=== PATIENT | female | born 1940 | race Caucasian/White ===

== ENCOUNTER → 2018-04-20 06:43 | Outpatient (CLI) | payer MEDICARE, SELFPAY ==
[2018-04-20 08:55] LABS: Alanine Aminotransferase 27 IU/L (9-52); Albumin 4.5 g/dL (3.5-5.0); Albumin Globulin Ratio 1.6 (1.0-2.8); Alkaline Phosphatase 49 U/L (38-126); Aspartate Aminotransferase 34 IU/L (14-36); BUN Creatinine Ratio 26.3 (6-22); Bilirubin Total 0.8 mg/dL (0.2-1.3); Blood Urea Nitrogen 21 mg/dL (7-17); Calcium 9.5 mg/dL (8.4-10.2); Carbon Dioxide 30 mmol/L (22-32); Chloride 100 mmol/L (98-107); Cholesterol 165 mg/dL (140-199); Estimated Glomerular Filt Rate > 60.0 mL/min (>60); Globulin 2.9 g/dL (1.7-4.1); Glucose 101 mg/dL (80-110); HDL Cholesterol 70 mg/dL (40-60); HEMOLYSIS < 15 (0-50); LDL Cholesterol Calculated 74 mg/dL (<100); Potassium 3.9 mmol/L (3.4-5.1); Sodium 143 mmol/L (137-145); Total Protein 7.4 g/dL (6.3-8.2); Triglycerides 104 mg/dL (35-150)
[2018-04-20 09:03] LABS: Vitamin D 25 Hydroxy (D3) 37.3 ng/mL (30.0-100.0)
== END ==
PROVIDERS: PCP Internal Medicine; Visit Provider Internal Medicine
DX: E55.9 Vitamin D deficiency, unspecified (principal); E78.2 Mixed hyperlipidemia
CPT/HCPCS: 36415; 80053; 80061; 82306

== ENCOUNTER → 2018-08-04 14:21 | Outpatient (CLI) | payer MEDICARE, SELFPAY ==
--- NOTE | 2018-08-04 14:23 | DI.US.S_ITS ---
LIMITED ULTRASOUND OF LEFT BREAST: 08/04/2018 CLINICAL: Per technologist, the patient reports diffuse left breast pain occuring approximately 1 month ago that was tender to the touch and radiated in a band-like fashion across the front of the breast from the sternum to the back. This pain completely resolved a few days later. Patient denies any current focal pain, skin changes, discharges, or palpable abnormalities. Comparison is made to exams dated: 08/04/2018 mammogram, 08/06/2017 mammogram, and 07/10/2015 mammogram - [facility]. Real-time and Doppler ultrasound of the upper left breast were performed. Anderson scale images of the real-time examination were reviewed. Targeted ultrasound was performed in the region of the 1.0 cm area of possible architectural distortion in the upper left breast at 12 o'clock position middle depth 2 cm from the nipple that was seen on initial diagnostic mammography but resolved with additional spot tomosynthesis views. No underlying breast mass or abnormality is identified on targeted left breast ultrasound. IMPRESSION: NEGATIVE 1) No ultrasound findings to explain patient's reported left breast pain, which has since resolved. Recommend clinical follow-up for further evaluation and management of the patient's reported symptoms. 2) There is no sonographic evidence of malignancy in the imaged left breast. Return to annual screening mammography is recommended. The patient is advised to monitor her breasts and to return sooner for re-evaluation should she feel anything grow or change. This exam was interpreted at Station ID: [id number]. Electronically Signed By: Jose Zepeda M.D. ecl/:08/04/2018 19:19:34 letter sent: Clinical Evaluation Ultrasound BI-RADS: 1 Negative
--- NOTE | 2018-08-04 14:23 | DI.MG.S_ITS ---
BILATERAL DIGITAL DIAGNOSTIC MAMMOGRAM 3D/2D: 08/04/2018 CLINICAL: Per technologist, the patient reports diffuse left breast pain occuring approximately 1 month ago that was tender to the touch and radiated in a band-like fashion across the front of the breast from the sternum to the back. This pain completely resolved a few days later. Patient denies any current focal pain, skin changes, discharges, or palpable abnormalities. Comparison is made to exams dated: 08/06/2017 mammogram, 07/10/2015 mammogram, and 06/20/2014 mammogram - [facility]. There are scattered fibroglandular elements in both breasts. There is a 1.0 cm area of possible architectural distortion in the upper left breast at 12 o'clock position middle depth 2 cm from the nipple which resolves with additional spot tomosynthesis views. No significant masses, calcifications, or other findings are seen in either breast. IMPRESSION: INCOMPLETE: NEEDS ADDITIONAL IMAGING EVALUATION 1) 1.0 cm area of possible architectural distortion in the upper left breast at 12 o'clock position middle depth 2 cm from the nipple which resolves with additional spot tomosynthesis views. Targeted ultrasound will be performed for further evaluation. 2) No other findings to explain patient's reported previous diffuse left breast pain, which has since resolved. This exam was interpreted at Station ID: [id number]. NOTE: For mammograms, a report in lay terms will be sent to the patient. Approximately 15% of breast malignancies will not be visualized mammographically. In the management of a palpable breast mass, a negative mammogram must not discourage biopsy of a clinically suspicious lesion. Electronically Signed By: Jose Zepeda M.D. ecl/:08/04/2018 19:15:32 letter sent: Additional Imaging Needed ACR BI-RADS Category 0: Incomplete [id number]
== END ==
PROVIDERS: PCP Internal Medicine; Visit Provider Internal Medicine
DX: R92.8 Other abnormal and inconclusive findings on diagnostic imaging of breast (principal); N64.4 Mastodynia
CPT/HCPCS: 76642; 77066; G0279

== ENCOUNTER → 2018-11-09 10:06 | Outpatient (CLI) | payer MEDICARE, SELFPAY ==
[2018-11-09 11:11] LABS: Alanine Aminotransferase 28 IU/L (9-52); Albumin 4.7 g/dL (3.5-5.0); Albumin Globulin Ratio 1.5 (1.0-2.8); Alkaline Phosphatase 54 U/L (38-126); Aspartate Aminotransferase 37 IU/L (14-36); BUN Creatinine Ratio 22.2 (6-22); Bilirubin Total 0.5 mg/dL (0.2-1.3); Blood Urea Nitrogen 20 mg/dL (7-17); Carbon Dioxide 30 mmol/L (22-32); Chloride 98 mmol/L (98-107); Estimated Glomerular Filt Rate > 60.0 mL/min (>60); Globulin 3.1 g/dL (1.7-4.1); Glucose 100 mg/dL (80-110); HEMOLYSIS < 15 (0-50); Potassium 4.4 mmol/L (3.4-5.1); Sodium 137 mmol/L (137-145); Total Protein 7.8 g/dL (6.3-8.2)
== END ==
PROVIDERS: PCP Internal Medicine; Visit Provider Internal Medicine
DX: E78.2 Mixed hyperlipidemia (principal)
CPT/HCPCS: 36415; 80053

== ENCOUNTER → 2019-04-19 06:40 | Outpatient (CLI) | payer MEDICARE, SELFPAY ==
[2019-04-19 08:03] LABS: Alanine Aminotransferase 22 IU/L (9-52); Albumin 4.4 g/dL (3.5-5.0); Albumin Globulin Ratio 1.5 (1.0-2.8); Alkaline Phosphatase 57 U/L (38-126); Aspartate Aminotransferase 31 IU/L (14-36); BUN Creatinine Ratio 22.5 (6-22); Bilirubin Total 0.7 mg/dL (0.2-1.3); Blood Urea Nitrogen 18 mg/dL (7-17); Calcium 9.4 mg/dL (8.4-10.2); Carbon Dioxide 31 mmol/L (22-32); Chloride 101 mmol/L (98-107); Cholesterol 156 mg/dL (140-199); Estimated Glomerular Filt Rate > 60.0 mL/min (>60); Globulin 2.9 g/dL (1.7-4.1); Glucose 101 mg/dL (80-110); HDL Cholesterol 66 mg/dL (40-60); HEMOLYSIS < 15 (0-50); LDL Cholesterol Calculated 69 mg/dL (<100); Potassium 4.1 mmol/L (3.4-5.1); Sodium 140 mmol/L (137-145); Total Protein 7.3 g/dL (6.3-8.2); Triglycerides 103 mg/dL (35-150)
== END ==
PROVIDERS: PCP Internal Medicine; Visit Provider Internal Medicine
DX: E78.2 Mixed hyperlipidemia (principal)
CPT/HCPCS: 36415; 80053; 80061

== ENCOUNTER 2019-05-26 06:25 | Day surgery (SDC) | payer MEDICARE, SELFPAY ==
--- NOTE | 2019-05-26 | PATH_ITS ---
[facility] Accession Number: [id number] . 01 Material submitted: . sinus, frontal - RIGHT PIRIFORM SINUS BIOPSY . 01 Clinical history: . FROZEN SECTION DIAGNOSIS: PIRIFORM SINUS: INVASIVE SQUAMOUS CELL CARCINOMA. GROSS DESCRIPTION: 5 PCS BLACKMON-RED TISSUE 0.2-0.6 CM. . 02 Frozen section diagnosis: . FS: INVASIVE SQUAMOUS CELL CARCINOMA. . Results given to Dr. Sonia Hodge after patient identification by Dr. Vonda Mancuso on 05/26/2019. Procedure was performed at [address] JRL/MRV . 03 Diagnosis: Right Pyriform Sinus, Biopsy: Invasive squamous cell carcinoma, well to moderately differentiated. Negative for p16 immunostaining. MRV/05/31/2019 . 03 Comment: Results were discussed with Sadia, [employer] with Dr. Hodge on 05/31/2019 at approximately 3:35 p.m. . This case was reviewed by Dr. Mancuso, who concurs with this interpretation. . 03 Electronically signed: . Oxana Fontaine MD, Pathologist NPI- [id number] . 01 Gross description: . Received in formalin, labeled pyriform sinus biopsy, are five pieces of blackmon-red tissue (0.2-0.6 cm) which were previously received unfixed for frozen section performed at [facility]. The remaining frozen section tissue is entirely submitted in cassette A1, and the remaining tissue is filtered and entirely submitted in cassette A2. ([id number]) /MRV . 03 Microscopic: . An immunohistochemical stain for p16 is performed on block A2 to evaluate for block reactivity and is negative. The control stained with appropriate reactivity. . * This test was developed and its performance characteristics determined by [employer]. It has not been cleared or approved by the U.S. Food and Drug Administration. The FDA has determined that such clearance or approval is not necessary. This test is used for clinical purposes. It should not be regarded as investigational or for research. . 03 Pathologist provided ICD-10: C12 . 03 CPT . 575116, 995609, A02399 Performed at: 01 [facility] [address] [id number] MD Rafael Patel MD Phone: [phone] Performed at: [address] [facility] [id number] MD Irlanda Portillo MD Phone: [phone] Performed at: [address] [id number] MD Maria L Mancuso MD Phone: [phone]
[2019-05-26 06:59] VITALS: BP 108/66; PULSE 74; RESP 16; TEMP 36.4; O2SAT 98; BMI 43.1
--- NOTE | 2019-05-26 07:19 | PM.PREOP ---
Pre-operative Note Interval Note History & Physical reviewed/Exam performed by Physician: Yes Changes to H&P: No
[2019-05-26 08:18] VITALS: BP 110/66; PULSE 66; RESP 12; TEMP 36.1; O2SAT 95
[2019-05-26 08:23] VITALS: BP 109/67; PULSE 65; RESP 11; O2SAT 94
[2019-05-26] MEDS: OXYMETAZOLINE NASAL SPRAY 30 ML 2 SPRAYS NASAL (08:27)
[2019-05-26 08:28] VITALS: BP 118/68; PULSE 66; RESP 11; O2SAT 93
[2019-05-26 08:33] VITALS: BP 112/58; PULSE 65; RESP 14; O2SAT 95
--- NOTE | 2019-05-26 08:37 | PM.OP.1 ---
Operative Date/Time/Diagnoses Date of procedure: 05/26/19 Time of procedure: 08:38 Pre-op diagnosis: Right piriform sinus mass Post-op diagnosis: same Procedure & Clinicians Procedure: Direct laryngoscopy with biopsy Same procedure as scheduled: Yes Indications: 78-year-old female with the above diagnosis presents for the above procedure. following discussion of the material risks benefits complications and alternatives, she elected to proceed. Click Yes if Unassisted: Yes Anesthesia Type: General Operative Notes Findings: Exophytic greater than 1 cm mass filling right piriform sinus, frozen section consistent with invasive squamous cell carcinoma Closure Type: not applicable Specimen(s): other (Biopsy right piriform sinus mass) Estimated Blood Loss (mL): 5 Blood products transfused: none Procedure in detail: Following identification and confirmation of consent, she was brought to the operating room suite and general endotracheal anesthesia was administered. The table was turned right side out and a mouth guard was placed. the rigid laryngoscope was passed through the right side of the oral cavity until the right piriform mass was visualized. A cup forceps performed 3 biopsies with pressure and Afrin on pledgets for hemostasis. hemostasis was assured and the scope was removed. There was an area of the lower lip that had been pinched consistent with a bruise but no laceration. She tolerated the procedure well without known complication. She was extubated in the operating room and taken to recovery room in stable condition. Complications: none Condition: stable Disposition: PACU Plan for aftercare: [place] home
[2019-05-26 08:40] VITALS: BP 127/66; PULSE 98; RESP 17; TEMP 36.7; O2SAT 97
--- NOTE | 2019-05-26 09:06 | SUR.PHASEII ---
Phase 2: Discharge note--Discharged to home with friend. No complaints of pain. Tolerating cool po without nausea. Dr. Hodge will call patient this afternoon per orders on discharge instructions.
== END 2019-05-26 09:05 | disposition home or self-care (01) ==
PROVIDERS: PCP Internal Medicine; Visit Provider Otolaryngology
PROC: 0CJS8ZZ Inspection of Larynx, Via Natural or Artificial Opening Endoscopic (ICD-10-PCS; CPT 31535; principal; 2019-05-26 07:45)
DX: C12 Malignant neoplasm of pyriform sinus (principal); Z85.819 Personal history of malignant neoplasm of unspecified site of lip, oral cavity, and pharynx
CPT/HCPCS: 31535; 88305; 88311; 88342; J0330; J1100; J2405; J2704; J3010

== ENCOUNTER → 2019-05-31 08:25 | Outpatient (CLI) | payer MEDICARE, SELFPAY ==
[2019-05-31 08:54] LABS: BUN Creatinine Ratio 26.3 (6-22); Blood Urea Nitrogen 21 mg/dL (7-17); Estimated Glomerular Filt Rate > 60.0 mL/min (>60)
== END ==
PROVIDERS: PCP Internal Medicine; Visit Provider Otolaryngology
DX: C13.9 Malignant neoplasm of hypopharynx, unspecified (principal)
CPT/HCPCS: 36415; 82565; 84520

== ENCOUNTER → 2019-06-01 12:54 | Outpatient (CLI) | payer MEDICARE, SELFPAY ==
--- NOTE | 2019-06-01 13:24 | DI.CT.S_ITS ---
PROCEDURE: CT SOFT TISSUE NECK W CON INDICATIONS: Malignant neoplasm of hypopharynx, unspecified TECHNIQUE: After the administration of intravenous contrast, 3.0 mm axial sections acquired from the sella to the aortic arch. Additional oblique axial 3.0 mm sections acquired through the pharynx. 3 mm thick coronal and sagittal reformats were generated. For radiation dose reduction, the following was used: automated exposure control. COMPARISON: [facility], CT, SOFT TISSUE NECK W CONTRAST, 03/09/2009, 7:24. [facility], CT, THORAX WITH CONTRAST, 03/09/2009, 7:24. [facility], CT, SOFT TISSUE NECK W CONTRAST, 06/30/2008, 11:54. FINDINGS: Image quality: Excellent. Lymph nodes: Mild prominence of cerebral lymph nodes can be seen, yet without digna pathologic enlargement. Vessels: Visualized vasculature appears patent. Neck spaces: There is abnormal enhancing soft tissue seen within the right supraglottic neck, seen within the region of the right piriform sinus that measures 1.6 x 1.5 cm in greatest axial dimension, with a craniocaudal extent of 1.8 cm. No additional neck masses are detected. Postoperative changes are can be seen of the right neck. Glands: The parotid and submandibular glands appear normal. Thyroid gland demonstrates a low density lesion within the right thyroid that measures 9 mm and is similar to 2009. Miscellaneous: Visualized brain and orbits appear normal. Poorly defined opacity can be seen within the right upper lobe, which is new compared to prior imaging, although the most recent CT examination through the area was in 2008. Superficial soft tissues appear normal. Bones: No suspicious bony lesions. Visualized sinuses and mastoids appear unremarkable. Moderate degenerative change is seen of the inferior cervical spine. IMPRESSION: There is an enhancing mass seen on the right within the region of the piriform sinus that measures up to 1.8 cm. The imaging appearance is highly worrisome for recurrent neoplasm. Further evaluation is recommended, either beginning with a PET CT or direct visualization/biopsy. Abnormal right upper lobe opacity is seen. The appearance is moderately suspicious for neoplasm. If prior outside studies exist, please present them for correlation. Comparison will be made and an addendum issued to this report. In the absence of outside prior studies, dedicated chest CT would be recommended for further evaluation, as clinically appropriate. Dictated by: Donald Foster M.D. on 06/01/2019 at 15:47 Approved by: Donald Foster M.D. on 06/01/2019 at 16:04
== END ==
PROVIDERS: PCP Internal Medicine; Visit Provider Otolaryngology
DX: C13.9 Malignant neoplasm of hypopharynx, unspecified (principal)
CPT/HCPCS: 70491; Q9967

== ENCOUNTER → 2019-06-01 13:18 | Outpatient (CLI) | payer SELFPAY | PROVIDERS: PCP Internal Medicine; Visit Provider Otolaryngology | DX: C12 Malignant neoplasm of pyriform sinus (principal) ==

== ENCOUNTER → 2019-09-27 08:15 | Outpatient (CLI) | payer MEDICARE, SELFPAY ==
[2019-09-27 09:14] LABS: BUN Creatinine Ratio 28.8 (6-22); Blood Urea Nitrogen 23 mg/dL (7-17); Estimated Glomerular Filt Rate > 60.0 mL/min (>60)
== END ==
PROVIDERS: Visit Provider Otolaryngology
DX: C12 Malignant neoplasm of pyriform sinus (principal)
CPT/HCPCS: 36415; 82565; 84520

== ENCOUNTER → 2019-10-07 09:30 | Outpatient (CLI) | payer MEDICARE, SELFPAY ==
--- NOTE | 2019-10-07 09:54 | DI.CT.S_ITS ---
PROCEDURE: CT SOFT TISSUE NECK W CON INDICATIONS: Malignant neoplasm of pyriform sinus TECHNIQUE: After the administration of intravenous contrast, 3.0 mm axial sections acquired from the sella to the aortic arch. Additional oblique axial 3.0 mm sections acquired through the pharynx. 3 mm thick coronal and sagittal reformats were generated. For radiation dose reduction, the following was used: automated exposure control. COMPARISON: [facility], [place], [place] PET CT FUSION SKULL 2 THIGH, 06/08/2019, 15:18. [facility], CT, CT SOFT TISSUE NECK W CON, 06/01/2019, 13:07. FINDINGS: Image quality: Excellent. Lymph nodes: No enlarged lymph nodes seen throughout the neck. There is a 0.8 cm short axis left level III lymph node which is centrally necrotic concerning for metastatic disease. There is a 0.9 cm short axis left level IIb lymph node which is centrally necrotic concerning for metastatic disease. Vessels: Visualized vasculature appears patent. Neck spaces: Mucosal-based, heterogeneously enhancing mass involving the right tongue base with inferior extension into the right valleculum in the right piriform sinus is decreased in size compared to 06/01/2019 measuring 0.9 x 1.0 x 0.9 cm in the current study (1.6 x 1.5 x 1.8 cm previously. The nasopharynx, and pharynx demonstrate no mucosal lesions. The vocal cords, false vocal cords, pyriform sinuses, epiglottis, vallecula, and tongue base all appear normal. Extramucosal spaces appear unremarkable. The right sternocleidomastoid muscle is absent. Glands: The right submandibular gland is absent. The parotid and left submandibular glands appear normal. Thyroid gland contains hypoattenuating nodules which are stable compared to 06/01/2019.. Miscellaneous: Visualized brain and orbits appear normal. Parenchymal scarring in the anterior margin of the right upper lobe is stable compared to prior examination. Superficial soft tissues appear normal. Bones: No suspicious bony lesions. Spine degenerative disc disease and facet arthropathy. Visualized sinuses and mastoids appear unremarkable. IMPRESSION: 1. 0.9 x 1.0 x 0.9 cm mucosal-based mass involving the right tongue base with extension of the right vallecula and piriform sinus. Mass is decreased in size compared A.. 2. Centrally necrotic left level IIb and left level III lymph nodes concerning for metastatic disease. Dictated by: Stacy Jansen MD, PhD on 10/07/2019 at 13:15 Approved by: Stacy Jansen MD, PhD on 10/07/2019 at 13:30
== END ==
PROVIDERS: Visit Provider Radiology Radiation Oncology
DX: C12 Malignant neoplasm of pyriform sinus (principal); I88.8 Other nonspecific lymphadenitis
CPT/HCPCS: 70491; Q9967

== ENCOUNTER → 2019-10-27 10:02 | Outpatient (CLI) | payer MEDICARE, SELFPAY ==
[2019-10-27 10:27] LABS: Add Manual Diff / Slide Review NO; Basophils Absolute Auto 0 /uL (0-100); Basophils Percent Auto 0.6 % (0-2); Eosinophils Absolute Auto 100 /uL (0-450); Eosinophils Percent Auto 1.3 % (2-4); Hematocrit 40.6 % (36-46); Hemoglobin 13.7 g/dL (12.0-16.0); Lymphocytes Absolute Auto 1300 /uL (1100-4500); Lymphocytes Percent Auto 15.1 % (25-40); Mean Corpuscular HGB Conc 33.7 % (30-36); Mean Corpuscular Hemoglobin 30.2 PG (26-34); Mean Corpuscular Volume 89.6 fL (80-100); Monocytes Absolute Auto 600 /uL (0-900); Monocytes Percent Auto 6.6 % (3-14); Neutrophils Absolute Auto 6500 /uL (1500-7000); Neutrophils Percent Auto 76.4 % (50-75); Platelet Count 276 X10^3/uL (150-400); Red Blood Cell Count 4.53 X10^6/uL (4.0-5.2); Red Cell Distribution Width 14.4 % (11.6-14.8); White Blood Cell Count 8.5 X10^3/uL (4.5-11.0)
[2019-10-27 10:41] LABS: Alanine Aminotransferase 20 IU/L (<35); Albumin 4.6 g/dL (3.5-5.0); Albumin Globulin Ratio 1.4 (1.0-2.8); Alkaline Phosphatase 63 U/L (38-126); Aspartate Aminotransferase 36 IU/L (14-36); BUN Creatinine Ratio 31.3 (6-22); Bilirubin Total 0.5 mg/dL (0.2-1.3); Blood Urea Nitrogen 25 mg/dL (7-17); Calcium 9.9 mg/dL (8.4-10.2); Carbon Dioxide 31 mmol/L (22-32); Chloride 97 mmol/L (98-107); Estimated Glomerular Filt Rate > 60.0 mL/min (>60); Globulin 3.4 g/dL (1.7-4.1); Glucose 96 mg/dL (80-110); HEMOLYSIS < 15 (0-50); Potassium 4.3 mmol/L (3.4-5.1); Sodium 138 mmol/L (137-145)
== END ==
PROVIDERS: PCP Internal Medicine; Visit Provider Internal Medicine
DX: C09.9 Malignant neoplasm of tonsil, unspecified (principal); E78.2 Mixed hyperlipidemia; F41.1 Generalized anxiety disorder
CPT/HCPCS: 36415; 80053; 85025

== ENCOUNTER → 2019-12-13 06:39 | Outpatient (CLI) | payer MEDICARE, SELFPAY ==
[2019-12-13 07:38] LABS: Add Manual Diff / Slide Review NO; Basophils Absolute Auto 100 /uL (0-100); Basophils Percent Auto 1.1 % (0-2); Eosinophils Absolute Auto 200 /uL (0-450); Eosinophils Percent Auto 3.7 % (2-4); Hematocrit 39.5 % (36-46); Hemoglobin 13.5 g/dL (12.0-16.0); Lymphocytes Absolute Auto 1300 /uL (1100-4500); Lymphocytes Percent Auto 23.5 % (25-40); Mean Corpuscular HGB Conc 34.2 % (30-36); Mean Corpuscular Hemoglobin 30.3 PG (26-34); Mean Corpuscular Volume 88.7 fL (80-100); Monocytes Absolute Auto 500 /uL (0-900); Monocytes Percent Auto 8.3 % (3-14); Neutrophils Absolute Auto 3600 /uL (1500-7000); Neutrophils Percent Auto 63.4 % (50-75); Platelet Count 264 X10^3/uL (150-400); Red Blood Cell Count 4.45 X10^6/uL (4.0-5.2); Red Cell Distribution Width 13.9 % (11.6-14.8); White Blood Cell Count 5.7 X10^3/uL (4.5-11.0)
[2019-12-13 08:29] LABS: Alanine Aminotransferase 21 IU/L (<35); Albumin 4.2 g/dL (3.5-5.0); Albumin Globulin Ratio 1.3 (1.0-2.8); Alkaline Phosphatase 62 U/L (38-126); Aspartate Aminotransferase 33 IU/L (14-36); BUN Creatinine Ratio 27.5 (6-22); Bilirubin Total 0.5 mg/dL (0.2-1.3); Blood Urea Nitrogen 22 mg/dL (7-17); Calcium 9.9 mg/dL (8.4-10.2); Carbon Dioxide 31 mmol/L (22-32); Chloride 101 mmol/L (98-107); Estimated Glomerular Filt Rate > 60.0 mL/min (>60); Globulin 3.2 g/dL (1.7-4.1); Glucose 83 mg/dL (80-110); HEMOLYSIS < 15 (0-50); Potassium 5.1 mmol/L (3.4-5.1); Sodium 138 mmol/L (137-145); Total Protein 7.4 g/dL (6.3-8.2)
== END ==
PROVIDERS: PCP Internal Medicine; Referring Provider Internal Medicine; Visit Provider Internal Medicine
DX: C09.9 Malignant neoplasm of tonsil, unspecified (principal); E78.2 Mixed hyperlipidemia; F41.1 Generalized anxiety disorder
CPT/HCPCS: 36415; 80053; 85025

== ENCOUNTER → 2019-12-19 07:41 | Outpatient (CLI) | payer MEDICARE, SELFPAY ==
--- NOTE | 2019-12-19 08:09 | DI.CT.S_ITS ---
PROCEDURE: CT SOFT TISSUE NECK W CON INDICATIONS: Malignant neoplasm of pyriform sinus TECHNIQUE: After the administration of intravenous contrast, 3.0 mm axial sections acquired from the sella to the aortic arch. Additional oblique axial 3.0 mm sections acquired through the pharynx. 3 mm thick coronal and sagittal reformats were generated. For radiation dose reduction, the following was used: automated exposure control. COMPARISON: [facility], CT, CT SOFT TISSUE NECK W CON, 10/07/2019, 9:37. [facility], [place], [place] FUSION SKULL 2 THIGH, 06/08/2019, 15:18. [facility], CT, CT SOFT TISSUE NECK W CON, 06/01/2019, 13:07. FINDINGS: Image quality: Degraded by beam hardening artifact related to metallic dental hardware. Lymph nodes: No enlarged lymph nodes seen throughout the neck. Centrally necrotic left level IIb and left level III lymph nodes are stable in size and contour compared to 10/07/2019. There is a new 0.9 cm short axis node in the right paratracheal superior mediastinum which has decreased central attenuation. Vessels: Visualized vasculature appears patent. Neck spaces: Mucosal prominence and scattered heterogeneous mucosal enhancement noted in the base and the pharynx including the valleculae, the right pyriform sinus, the epiglottis and the false vocal cords. The nasopharynx demonstrate no mucosal lesions. The vocal cords appear normal. The right sternocleidomastoid muscle is absent. Glands: The right submandibular gland is absent. The bilateral parotid and left submandibular glands appear normal. Thyroid gland contains numerous hypoattenuating nodules which are not significantly changed compared to the prior examination.. Miscellaneous: Visualized brain and orbits appear normal. Probable scarring in the anterior aspect of the right upper lobe is stable. Nodule in the left upper lobe has increased in size measuring 2.2 cm in maximum diameter in the current study (0.8 centimeters previously). Superficial soft tissues appear normal. Bones: No suspicious bony lesions. Visualized sinuses and mastoids appear unremarkable. IMPRESSION: 1. Interval increase in mucosal prominence involving the tongue base, valleculae, right pyriform sinus, epiglottis and false vocal cords which could be related to postradiation change or progression of head and neck carcinoma. 2. Centrally necrotic left level IIb and left level III lymph nodes concerning for metastatic disease are stable compared to 11/07/2018. 3. New centrally necrotic 0.9 cm short axis superior mediastinal lymph node concerning for metastatic lymphadenopathy. 3. 2.2 cm left upper lobe lung nodule suspicious for metastatic disease. Dictated by: Stacy Jansen MD, PhD on 12/19/2019 at 16:42 Approved by: Stacy Jansen MD, PhD on 12/19/2019 at 16:58
== END ==
PROVIDERS: PCP Internal Medicine; Referring Provider Radiology Radiation Oncology; Visit Provider Radiology Radiation Oncology
DX: C12 Malignant neoplasm of pyriform sinus (principal); R91.1 Solitary pulmonary nodule; R59.0 Localized enlarged lymph nodes
CPT/HCPCS: 70491; Q9967

== ENCOUNTER → 2020-03-19 06:48 | Outpatient (CLI) | payer MEDICARE, SELFPAY ==
[2020-03-19 07:25] LABS: Blood Urea Nitrogen 16 mg/dL (7-17); Estimated Glomerular Filt Rate > 60.0 mL/min (>60)
--- NOTE | 2020-03-19 09:41 | DI.CT.S_ITS ---
PROCEDURE: CT SOFT TISSUE NECK W CON INDICATIONS: MALIGNANT NEOPLASM OF PYRIFORM SINUS TECHNIQUE: After the administration of intravenous contrast, 3.0 mm axial sections acquired from the sella to the aortic arch. Additional oblique axial 3.0 mm sections acquired through the pharynx. 3 mm thick coronal and sagittal reformats were generated. For radiation dose reduction, the following was used: automated exposure control. COMPARISON: [place], [place] PET CT FUSION SKULL 2 THIGH, 01/04/2020, 14:45. [facility], CT, SOFT TISSUE NECK W CONTRAST, 03/09/2009, 7:24. [facility], CT, CT SOFT TISSUE NECK W CON, 06/01/2019, 13:07. [place], [place] PET CT FUSION SKULL 2 THIGH, 06/08/2019, 15:18. [facility], CT, CT SOFT TISSUE NECK W CON, 10/07/2019, 9:37. [facility] CT, CT SOFT TISSUE NECK W CON, 12/19/2019, 6:48. FINDINGS: Image quality: Excellent. Lymph nodes: No enlarged lymph nodes seen throughout the neck. The previously seen right superior cervical lymph node is clearly smaller than on the prior CT now measuring approximately 6 x 5 mm. Vessels: Visualized vasculature appears patent. Neck spaces: In this patient with this given history, scrutiny is given to the piriform sinuses. No masses can be seen. There is mild asymmetry seen within the right peritonsillar regions, with slight thickening seen on the right. This is similar in retrospect to prior examinations. This area has demonstrated no abnormal uptake on PET imaging. Extramucosal spaces appear unremarkable. Glands: The parotid and submandibular glands appear normal. Thyroid gland demonstrates a low density nodule on the right measuring 1 cm. Miscellaneous: Visualized brain and orbits appear normal. There is an irregular soft tissue nodule seen within the left lung apex, which measures 1.3 x 0.9 cm, which is clearly smaller than on the 12/19/19 examination. There is partial visualization of a soft tissue nodule within the right upper lobe that measures 1.4 x 1.4 cm, which is worse than on the 01/04/[address] images. Stable apparent scarring can be seen involving the right upper lobe anteriorly. Superficial soft tissues appear normal. Bones: No suspicious bony lesions. Visualized sinuses and mastoids appear unremarkable. Focal lower cervical spine degenerative changes are seen. IMPRESSION: No abnormalities can be seen within the piriform sinuses. There is a new 1.4 cm soft tissue nodule seen within the right upper lobe, which cannot be seen on prior recent imaging. This nodule is suspicious for metastatic disease. There is stable mild asymmetry seen within the peritonsillar regions, with slight mucosal thickening seen on the right. This is not viewed with suspicion, however. The previously seen left upper lobe nodule is clearly smaller on the current study. The previously seen enlarged and hypermetabolic right superior cervical lymph node is now clearly smaller on the current study. Stable right thyroid nodule incidentally noted, without significant change compared to 2009. Dictated by: Donald Foster M.D. on 03/19/2020 at 8:35 Approved by: Donald Foster M.D. on 03/19/2020 at 8:47
== END ==
PROVIDERS: PCP Internal Medicine; Referring Provider Radiology Radiation Oncology; Visit Provider Radiology Radiation Oncology
DX: C12 Malignant neoplasm of pyriform sinus (principal); R91.8 Other nonspecific abnormal finding of lung field; E04.1 Nontoxic single thyroid nodule; R59.0 Localized enlarged lymph nodes
CPT/HCPCS: 36415; 70491; 82565; 84520; Q9967

== ENCOUNTER → 2020-04-02 09:37 | Outpatient (CLI) | payer MEDICARE, SELFPAY ==
--- NOTE | 2020-04-02 | DI.CT.S_ITS ---
PROCEDURE: CT CHEST W CON INDICATIONS: Malignant neoplasm of upper lobe, left bronchus or lung TECHNIQUE: After the administration of intravenous contrast, 5 mm thick sections acquired from the pulmonary apices to the posterior costophrenic angles. 1 mm axial lung, 5 mm thick coronal and sagittal reformats and 7 mm axial MIP were acquired. For radiation dose reduction, the following was used: automated exposure control, adjustment of mA and/or kV according to patient size. COMPARISON: [place], [place], [place] PET CT FUSION SKULL 2 THIGH, 01/04/2020, 14:45. FINDINGS: Image quality: Excellent. Lungs and pleura: Since the prior PET CT, there has been interval development of 2 separate nodules within the right upper lobe essentially amongst vasculature, and the upper one measuring about 10 mm, a more caudal one measuring about 1.7 cm. Fibrotic scarring anteriorly in the right upper lobe is again noted. Spiculated ovoid mass in the left upper lobe has decreased in size since the PET/CT. No other suspicious nodules or masses. Findings are superimposed on background of mild emphysema. There is partial airway occlusion secondary to the largest mass in the right upper lobe but no evidence of postobstructive pneumonia. Central airways are patent. No pleural effusion or pneumothorax. Mediastinum: Heart size is normal. No pericardial effusion. No mediastinal or hilar adenopathy by size criteria. There is slightly increased soft tissue in the right hilum suspicious for small lymph nodes. Thoracic aorta and central pulmonary arteries are normal in size. Esophagus is normal in caliber. No hiatal hernia. Bones and chest wall: No suspicious bony lesions. No vertebral body compression fractures. No axillary or supraclavicular adenopathy by size criteria. Thyroid gland has a thick nodular appearance. Abdomen: Visualized upper abdominal solid organs appear normal. Upper abdominal bowel loops are normal in caliber. IMPRESSION: 1. There are 2 suspicious right upper lobe lung nodules, the largest was probably 1.4 cm and is now 1.7 cm. A smaller one has developed it measures 10 mm. These are highly suspicious for metastatic disease. 2. Interval decrease in size of left upper lobe lung nodule. 3. Mild emphysema. 4. Stable anterior right upper lobe scar. 5. Possible early right hilar adenopathy. Dictated by: Yissel Delcid M.D. on 04/02/2020 at 14:38 Approved by: Yissel Delcid M.D. on 04/02/2020 at 14:47
== END ==
PROVIDERS: PCP Internal Medicine; Referring Provider Radiology Radiation Oncology; Visit Provider Radiology Radiation Oncology
DX: C34.12 Malignant neoplasm of upper lobe, left bronchus or lung (principal); R91.8 Other nonspecific abnormal finding of lung field; J43.9 Emphysema, unspecified
CPT/HCPCS: 71260

== ENCOUNTER → 2020-06-06 10:57 | Outpatient (CLI) | payer MEDICARE, SELFPAY | PROVIDERS: PCP Internal Medicine; Visit Provider Registered Nurse Diabetes Educator | DX: R31.9 Hematuria, unspecified (principal) | CPT/HCPCS: 87086 ==

== ENCOUNTER → 2020-07-12 07:33 | Outpatient (CLI) | payer MEDICARE, SELFPAY ==
--- NOTE | 2020-07-12 08:16 | DI.CT.S_ITS ---
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 1 mm axial lung, 5 mm thick coronal and sagittal reformats and 7 mm axial MIP were acquired. For radiation dose reduction, the following was used: automated exposure control, adjustment of mA and/or kV according to patient size. COMPARISON: [facility], CT, CT SOFT TISSUE NECK W CON, 07/12/2020, 7:41. [facility], CT, CT SOFT TISSUE NECK W CON, 03/19/2020, 8:58. [facility], CT, CT GOMEZ, 01/16/2020, 13:00. [facility], [place], [place] PET CT FUSION SKULL 2 THIGH, 01/04/2020, 14:45. [facility], CT, CT SOFT TISSUE NECK W CON, 12/19/2019, 6:48. [facility], CT, CT SOFT TISSUE NECK W CON, 10/07/2019, 9:37. [facility], CT, CT CHEST W CON, 04/02/2020, 10:05. FINDINGS: Image quality: Excellent. Lungs and pleura: No new consolidation identified. Bilateral upper lobe scarring and architectural distortion is seen in both upper lobes. A previously seen nodule within the right upper lobe is no longer visualized and there is presumed post treatment sequela and its location, 110/3. Unchanged appearance of ill-defined nodular scarring and consolidation in the right anterior upper lobe. Ill-defined scarring and nodularity within the anterior left upper lobe with some areas appearing decreased in size for example 6-7 mm nodule image 102/3 previously 9 mm. 3 mm nodule seen within the posterior sulcus on the right is unchanged for example 298/3 Mediastinum: Heart size is normal. Coronary artery calcifications are present. No pericardial effusion. No mediastinal or hilar adenopathy by size criteria. Thoracic aorta and central pulmonary arteries are normal in size. Esophagus is normal in caliber. No hiatal hernia. Bones and chest wall: No suspicious bony lesions. No vertebral body compression fractures. No axillary or supraclavicular adenopathy by size criteria. 3 cm lipoma involving the left shoulder musculature image 31/5. Subcentimeter renal foci, statistically cysts, although technically too small to characterize accurately and therefore nonspecific. IMPRESSION: Overall, decreasing ill-defined nodularity in both upper lobes in keeping with treatment effect since 04/02/20. No definite new consolidation or pulmonary nodule identified Dictated by: Chaz Del Rosario M.D. on 07/12/2020 at 9:11 Approved by: Chaz Del Rosario M.D. on 07/12/2020 at 10:09
--- NOTE | 2020-07-12 08:17 | DI.CT.S_ITS ---
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 Additional oblique axial 3.0 mm sections acquired through the pharynx. 3 mm thick coronal and sagittal reformats were generated. For radiation dose reduction, the following was used: automated exposure control. COMPARISON: [facility], CT, CT SOFT TISSUE NECK W CON, 10/07/2019, 9:37. [facility], CT, CT SOFT TISSUE NECK W CON, 12/19/2019, 6:48. [facility], CT, CT CHEST W CON, 07/12/2020, 7:41. [facility], CT, CT SOFT TISSUE NECK W CON, 03/19/2020, 8:58. FINDINGS: Image quality: Excellent. Lymph nodes: There is an enlarged left level III mass measuring 20 mm AP x 20 mm transverse. It is noted that this focus has been present over multiple prior exams with the most recent on 03/19/2020 measuring approximately 7 x 7 mm. There is no central necrosis on current exam. Vessels: Visualized vasculature appears patent. Neck spaces: The oropharynx, nasopharynx, and pharynx demonstrate no mucosal lesions. The vocal cords, false vocal cords, pyriform sinuses, epiglottis, vallecula, and tongue base all appear normal. Extramucosal spaces appear unremarkable. Glands: The parotid and submandibular glands appear normal. Thyroid gland demonstrates bilateral areas of low-attenuation, right greater than left, unchanged. Miscellaneous: Visualized brain and orbits appear normal. Lung apices demonstrate areas of interstitial thickening and nodular, unchanged. Superficial soft tissues appear normal. Bones: No suspicious bony lesions. Visualized sinuses and mastoids appear unremarkable. IMPRESSION: 1. Marked interval enlargement of left level III lymph node. Dictated by: Sylvie Tejeda M.D. on 07/12/2020 at 10:47 Approved by: Sylvie Tejeda M.D. on 07/12/2020 at 11:01
== END ==
PROVIDERS: PCP Internal Medicine; Referring Provider Internal Medicine; Visit Provider Internal Medicine
DX: C79.89 Secondary malignant neoplasm of other specified sites (principal); C78.00 Secondary malignant neoplasm of unspecified lung; R59.0 Localized enlarged lymph nodes; R91.8 Other nonspecific abnormal finding of lung field; Z85.810 Personal history of malignant neoplasm of tongue
CPT/HCPCS: 70491; 71260; Q9967

== ENCOUNTER → 2020-08-21 07:57 | Outpatient (CLI) | payer MEDICARE, SELFPAY ==
--- NOTE | 2020-08-21 07:59 | DI.CT.S_ITS ---
PROCEDURE: CT CHEST W CON INDICATIONS: Follow-up metastatic head neck cancer TECHNIQUE: After the administration of intravenous contrast, 5 mm thick sections acquired from the pulmonary apices to the posterior costophrenic angles. 1 mm axial lung, 5 mm thick coronal and sagittal reformats and 7 mm axial MIP were acquired. For radiation dose reduction, the following was used: automated exposure control, adjustment of mA and/or kV according to patient size. COMPARISON: [facility], [place], [place] CT FUSION SKULL 2 THIGH, 01/04/2020, 14:45. [facility], CT, CT CHEST W CON, 04/02/2020, 10:05. [facility], CT, CT CHEST W CON, 07/12/2020, 7:41. FINDINGS: Image quality: Excellent. Lungs and pleura: There is an irregular masslike density in the left upper lobe anteriorly. The solid component measures 1.6 x 1.5 x 1.8 cm. Previously, it measured 1.2 x 1.1 x 1.6 cm on 07/12/2020. There are interstitial and ground-glass infiltrates in left upper lobe. An irregular masslike density is also noted in the right upper lobe measuring 2.1 x 2.5 x 2.3, unchanged. Mild centrilobular emphysema. No pleural effusions or pneumothorax. Central and peripheral airways are patent and normal in caliber. Mediastinum: Heart size is normal. No pericardial effusion. No mediastinal or hilar adenopathy by size criteria. Thoracic aorta and central pulmonary arteries are normal in size. Esophagus is normal in caliber. No hiatal hernia. Bones and chest wall: No suspicious bony lesions. No vertebral body compression fractures. No axillary or supraclavicular adenopathy by size criteria. There are a couple low density nodules in thyroid gland, one on each side. Abdomen: Visualized upper abdominal solid organs appear normal. Upper abdominal bowel loops are normal in caliber. IMPRESSION: 1. Irregular masslike density in the left upper lobe. The solid component appears increased. Differential diagnoses include treatment change/scarring versus residual/recurrent neoplasm. If clinically indicated, repeat PET-CT may be helpful. 2. Irregular masslike density in the right upper lobe appears stable. 3. No mediastinal or hilar lymphadenopathy. Dictated by: Charlotte Howard M.D. on 08/21/2020 at 11:18 Approved by: Charlotte Howard M.D. on 08/21/2020 at 11:40
--- NOTE | 2020-08-21 07:59 | DI.CT.S_ITS ---
PROCEDURE: CT SOFT TISSUE NECK W CON INDICATIONS: Follow-up metastatic head neck cancer TECHNIQUE: After the administration of intravenous contrast, 3.0 mm axial sections acquired from the sella to the aortic arch. Additional oblique axial 3.0 mm sections acquired through the pharynx. 3 mm thick coronal and sagittal reformats were generated. For radiation dose reduction, the following was used: automated exposure control. COMPARISON: [facility], CT, CT CHEST W CON, 07/12/2020, 7:41. [facility], CT, CT SOFT TISSUE NECK W CON, 07/12/2020, 7:41. FINDINGS: Image quality: Excellent. Lymph nodes: Previously identified left level 3 mass remains present measuring 20 mm AP by 19 mm transverse compared to 20 mm AP x 20 mm transverse on prior exam. Is seen on series 2, image 29. Vessels: Visualized vasculature appears patent. Neck spaces: There is a mild appearance of nonspecific soft tissue prominence within the arytenoid and aryepiglottic folds as well as mild asymmetric patency of the piriform sinuses. No discrete mass is identified. Glands: The parotid and submandibular glands appear normal. Thyroid gland demonstrates low-attenuation focus within the right lobe, unchanged. Miscellaneous: Visualized brain and orbits appear normal. Spiculated mass within the anterior right upper lobe is unchanged. Spiculated left upper lobe mass is increased in size with areas of increasing solid-appearing component compared to 07/12/2020. It currently measures 34 mm AP x 24 mm transverse compared to 20 mm AP x 15 mm transverse. Superficial soft tissues appear normal. Bones: No suspicious bony lesions. Visualized sinuses and mastoids appear unremarkable. IMPRESSION: 1. Unchanged left level 3 mass/lymph node, remaining concerning for metastatic disease. 2. Unchanged appearance of fullness within the arytenoid and aryepiglottic folds. It is noted recent laryngoscopy demonstrated decreasing edema without discrete mass. 3. Unchanged right upper lobe mass. 4. Interval increase in size and apparent solid component density of the left upper lobe mass, as previously noted concerning for malignancy. Dictated by: Sylvie Tejeda M.D. on 08/21/2020 at 12:19 Approved by: Sylvie Tejeda M.D. on 08/21/2020 at 12:35
== END ==
PROVIDERS: PCP Internal Medicine; Referring Provider Internal Medicine; Visit Provider Internal Medicine
DX: C79.89 Secondary malignant neoplasm of other specified sites; Z85.810 Personal history of malignant neoplasm of tongue; R59.0 Localized enlarged lymph nodes; R91.8 Other nonspecific abnormal finding of lung field; J43.2 Centrilobular emphysema
CPT/HCPCS: 70491; 71260

== ENCOUNTER → 2020-10-27 09:22 | Outpatient (CLI) | payer MEDICARE, SELFPAY ==
[2020-10-27 10:45] LABS: Appearance Urine UA CLOUDY; Bilirubin Urine UA NEGATIVE (NEGATIVE); Color Urine UA RED; Glucose Urine UA NEGATIVE (Negative); Ketones Urine UA NEGATIVE (NEGATIVE); Leukocyte Esterase Urine UA TRACE (NEGATIVE); Nitrite Urine UA NEGATIVE (Negative); Occult Blood Urine UA 3+ (Negative); Protein Urine UA 3+ (Negative); Urobilinogen Urine UA 0.2 E.U./dL (0.2)
[2020-10-27 10:46] LABS: pH Urine UA 6.5 (4.5-8.0)
[2020-10-27 10:51] LABS: Bacteria Urine None Seen; RBC Urine >100/HPF (0-5/HPF); WBC Urine 5-10/HPF (0-5/HPF)
[2020-10-27 10:52] LABS: Culture Indicated Urine Specimen Cultured
== END ==
PROVIDERS: PCP Internal Medicine; Referring Provider Family Medicine; Visit Provider Family Medicine
DX: R31.9 Hematuria, unspecified (principal)
CPT/HCPCS: 81001; 87086

== ENCOUNTER → 2020-10-29 08:49 | Outpatient (CLI) | payer MEDICARE, SELFPAY ==
--- NOTE | 2020-10-29 08:51 | DI.CT.S_ITS ---
PROCEDURE: CT SOFT TISSUE NECK W CON INDICATIONS: Follow-up metastatic tonsillar cancer TECHNIQUE: After the administration of intravenous contrast, 3.0 mm axial sections acquired from the sella to the aortic arch. Additional oblique axial 3.0 mm sections acquired through the pharynx. 3 mm thick coronal and sagittal reformats were generated. For radiation dose reduction, the following was used: automated exposure control. COMPARISON: [facility], CT, CT SOFT TISSUE NECK W CON, 07/12/2020, 7:41. [facility], CT, CT SOFT TISSUE NECK W CON, 03/19/2020, 8:58. [facility], [place], [place] CT FUSION SKULL 2 THIGH, 01/04/2020, 14:45. [facility], CT, CT SOFT TISSUE NECK W CON, 12/19/2019, 6:48. [facility], CT, CT SOFT TISSUE NECK W CON, 10/07/2019, 9:37. [facility], CT, CT SOFT TISSUE NECK W CON, 06/01/2019, 13:07. [facility], CT, CT CHEST ABD PEL W CON, 10/29/2020, 9:53. [facility], CT, CT SOFT TISSUE NECK W CON, 08/21/2020, 8:18. FINDINGS: Image quality: Excellent. Lymph nodes: On the left at level 3, there is again seen an enlarged likely lymph node that measures 16 x 19 mm in greatest axial dimension which is similar to the prior examination. There is a similar appearing nodule seen on the right, which is borderline enlarged, measuring 7 x 12 mm, as on series 2, image 35. Vessels: Visualized vasculature appears patent. Atherosclerotic calcification can be seen, particularly involving the carotid bifurcations. Neck spaces: Generalized increased mucosal thickening is seen within the perineal region, with thickening of the epiglottis and thickening of the regional soft tissues. On these images, no digna masses can be seen. Postoperative change can be seen on the right, with removal of the right sternocleidomastoid muscle. Glands: The parotid and submandibular glands appear normal. Thyroid gland demonstrates a low-density nodule within the right thyroid, as before. Miscellaneous: Visualized brain and orbits appear normal. There is a poorly defined mass involving the left upper lobe, which measures approximately 3.5 by 2.2 cm and is similar to the prior examination. A similar appearing poorly defined lesion can be seen at the right lung apex measuring 2.8 by 1.6 cm, which is also similar to the prior. Emphysematous changes can be seen at the lung apices. Superficial soft tissues appear normal. Bones: No suspicious bony lesions. Visualized sinuses and mastoids appear unremarkable. Age-appropriate bony degenerative changes are seen. IMPRESSION: On the left at level 3, there is a stable nodule seen that most likely represents an enlarged metastatic lymph node. A borderline prominent lymph node can be seen at a similar location on the right side. Generalized mucosal thickening can be seen of the pharynx, which is attributed to posttreatment changes. No digna regional masses are detected on this study. Stable bilateral upper lobe poorly defined masses are seen. Postoperative changes are seen on the right, including removal of the right sternocleidomastoid muscle. Low-density right thyroid lesion again seen. If clinically appropriate, a follow-up PET-CT could be considered for further evaluation. Dictated by: Donald Foster M.D. on 10/29/2020 at 9:25 Approved by: Donald Foster M.D. on 10/29/2020 at 9:34
--- NOTE | 2020-10-29 10:09 | DI.CT.S_ITS ---
PROCEDURE: CT CHEST ABD PEL W CON INDICATIONS: Follow-up metastatic tonsillar cancer TECHNIQUE: After the administration of oral and intravenous contrast, 5 mm thick sections acquired from the lung apices to the symphysis. 5 mm coronal and sagittal reformats were performed, with additional 7 mm coronal MIP reformats through the lungs. For radiation dose reduction, the following was used: automated exposure control, adjustment of mA and/or kV according to patient size. COMPARISON: [facility], CT, CT CHEST W CON, 04/02/2020, 10:05. [facility], [place], [place] PET CT FUSION SKULL 2 THIGH, 01/04/2020, 14:45. [facility], CT, CT CHEST W CON, 08/21/2020, 8:18. FINDINGS: Image quality: Excellent. CHEST: Lungs and pleura: Left upper lobe spiculated opacity measures 2.5 x 1.6 cm, (3/101), previously 1.7 x 11.6 cm, previously 1.4 x 1.3 cm on 04/02/2020. This lesion demonstrates increased density at the inferior aspect. Prior PET/CT demonstrated mild FDG avidity. Right upper lobe spiculated opacity measuring 1.7 x 1.1 cm, (3/66), previously 1.8 x 0.9 cm, and more remotely 1.7 x 1 cm on 06/01/2019. Prior PET/CT demonstrated minimal FDG uptake. No acute airspace opacities. No pleural effusions or pneumothorax. Central and peripheral airways appear patent and normal in caliber. No acute airspace opacity. Airways are clear. Mild to moderate emphysematous change. No pleural effusion. No pneumothorax. Mediastinum: Heart size is within normal limits. Coronary artery calcifications. No pericardial effusion. No mediastinal or hilar adenopathy by size criteria. Thoracic aorta and central pulmonary arteries are normal in size. Esophagus is normal in caliber. No hiatal hernia. Chest wall: No axillary or supraclavicular adenopathy by size criteria. Hypodense right thyroid nodule measuring 0.9 cm. ABDOMEN: Solid organs: Liver is normal in size and enhancement. Focal fatty infiltration near the falciform ligament. Gallbladder is unremarkable . Biliary system is non dilated. Pancreas enhances normally. Spleen is normal in size and enhancement. No adrenal nodules. Kidneys demonstrate normal size and enhancement, without hydronephrosis. The several small cysts in the kidneys. Multiple cortical hypodensities are too small to further characterize. Peritoneum and bowel: No small bowel obstruction. Prominent stool throughout the colon. Normal appendix. No free fluid or air. Nodes and vessels: No retroperitoneal or mesenteric adenopathy by size criteria. Aorta and inferior vena cava are normal in size. Circumaortic left renal vein, variant. Miscellaneous: No ventral hernias. PELVIS: Genitourinary: Bladder is unremarkable. Postmenopausal uterus. Miscellaneous: No inguinal hernias or adenopathy. Bones: No suspicious bony lesions. No vertebral body compression fractures. IMPRESSION: 1. Left upper lobe spiculated opacity demonstrates mild interval increase in size and density. This is suspicious for malignancy. 2. Right upper lobe spiculated opacity is not significantly changed. 3. No adenopathy seen on this exam. Please see separately dictated same day soft tissue neck CT. 4. No metastatic disease identified in the abdomen or pelvis. 5. No suspicious osseous lesions. Dictated by: Carlos Segovia M.D. on 10/29/2020 at 11:38 Approved by: Carlos Segovia M.D. on 10/29/2020 at 11:55
== END ==
PROVIDERS: PCP Internal Medicine; Referring Provider Internal Medicine; Visit Provider Internal Medicine
DX: C79.89 Secondary malignant neoplasm of other specified sites (principal); Z85.810 Personal history of malignant neoplasm of tongue; R91.8 Other nonspecific abnormal finding of lung field; R59.0 Localized enlarged lymph nodes; E07.9 Disorder of thyroid, unspecified
CPT/HCPCS: 70491; 71260; 74177; Q9967

== ENCOUNTER → 2021-01-10 08:18 | Outpatient (CLI) | payer MEDICARE, SELFPAY ==
--- NOTE | 2021-01-10 08:19 | DI.CT.S_ITS ---
PROCEDURE: CT CHEST ABD PEL W CON INDICATIONS: Follow-up metastatic head neck cancer TECHNIQUE: After the administration of oral and intravenous contrast, 5 mm thick sections acquired from the lung apices to the symphysis. 5 mm coronal and sagittal reformats were performed, with additional 7 mm coronal MIP reformats through the lungs. For radiation dose reduction, the following was used: automated exposure control, adjustment of mA and/or kV according to patient size. COMPARISON: [facility], CT, CT CHEST W CON, 08/21/2020, 8:18. [facility], CT, CT CHEST W CON, 07/12/2020, 7:41. [facility], CT, CT CHEST W CON, 04/02/2020, 10:05. [place], [place] CT FUSION SKULL 2 THIGH, 06/08/2019, 15:18. [place], [place] PET CT FUSION SKULL 2 THIGH, 01/04/2020, 14:45. [facility], CT, CT SOFT TISSUE NECK W CON, 01/10/2021, 9:13. [facility], CT, CT CHEST ABD PEL W CON, 10/29/2020, 9:53. FINDINGS: Image quality: Excellent. CHEST: Lungs and pleura: There are irregular densities in upper lobes bilaterally. There is a spiculated density in the left upper lobe anteriorly, measuring 1.6 x 2.6 cm, unchanged in size or appearance. An irregular spiculated density is also seen in the right upper lobe anteriorly measuring 2.2 x 3.6 cm, also unchanged. There is bronchiectasis in right upper lobe. There is mild centrilobular emphysema. No pleural effusions or pneumothorax. Central and peripheral airways appear patent and normal in caliber. Mediastinum: Heart size is normal. No pericardial effusion. There is moderate coronary artery calcification. No mediastinal or hilar adenopathy by size criteria. Thoracic aorta and central pulmonary arteries are normal in size. Esophagus is normal in caliber. No hiatal hernia. Chest wall: Chronic opacities in upper lobes bilaterally. No axillary or supraclavicular adenopathy by size criteria. There is a 0.8 cm nodule in the right thyroid lobe, unchanged. ABDOMEN: Solid organs: Liver is normal in size and enhancement. Gallbladder is normal . Biliary system is non dilated. Pancreas enhances normally. Spleen is normal in size and enhancement. Mild adrenal thickening. No adrenal nodules. Kidneys demonstrate normal size and enhancement, without hydronephrosis. Small cortical nodules in kidneys are most likely renal cysts. Peritoneum and bowel: Bowel loops demonstrate normal wall thickness and caliber. There is a large amount of stool in colon. Scattered colonic diverticula present. No findings to suggest acute diverticulitis. No free fluid or air. Nodes and vessels: No retroperitoneal or mesenteric adenopathy by size criteria. Aorta and inferior vena cava are normal in size. Severe atherosclerosis. Miscellaneous: No ventral hernias. PELVIS: Genitourinary: Uterus is normal. There is a 1.5 cm left ovarian cyst. Right ovary is not well seen. Bladder wall thickness is normal. Miscellaneous: No inguinal hernias or adenopathy. Bones: Mild levoscoliosis. Moderate degenerative changes in lumbar spine. No suspicious bony lesions. No vertebral body compression fractures. IMPRESSION: 1. Stable irregular pulmonary densities in upper lobes bilaterally. 2. No metastatic disease in abdomen or pelvis. 3. Stable small right thyroid nodule. Dictated by: Charlotte Howard M.D. on 01/10/2021 at 12:28 Approved by: Charlotte Howard M.D. on 01/10/2021 at 12:48
--- NOTE | 2021-01-10 08:19 | DI.CT.S_ITS ---
PROCEDURE: CT SOFT TISSUE NECK W CON INDICATIONS: Follow-up metastatic head neck cancer TECHNIQUE: After the administration of intravenous contrast, 3.0 mm axial sections acquired from the sella to the aortic arch. Additional oblique axial 3.0 mm sections acquired through the pharynx. 3 mm thick coronal and sagittal reformats were generated. For radiation dose reduction, the following was used: automated exposure control. COMPARISON: [facility], CT, CT SOFT TISSUE NECK W CON, 08/21/2020, 8:18. [facility], CT, CT SOFT TISSUE NECK W CON, 06/01/2019, 13:07. [facility], CT, CT SOFT TISSUE NECK W CON, 10/29/2020, 9:53. FINDINGS: Image quality: Excellent. Lymph nodes: Left level 3 lymph node is again noted measuring 20 mm AP x 18 mm transverse, unchanged. Right-sided node in similar location on the right is noted, although poorly characterized secondary to significant artifact within this region. It is felt to be at least minimally decreased versus stable compared to prior exam. Vessels: Visualized vasculature appears patent. Neck spaces: The oropharynx, nasopharynx, and pharynx demonstrate no mucosal lesions. The vocal cords, false vocal cords, pyriform sinuses, epiglottis, vallecula, and tongue base all appear normal. Extramucosal spaces appear unremarkable. Postsurgical changes are noted within the right neck. There is stable appearance of thickening within the pharynx suggestive of post treatment changes. No discrete mass is identified. Glands: The parotid and submandibular glands appear normal. Thyroid gland demonstrates low-attenuation focus within the right lobe, unchanged. Miscellaneous: Visualized brain and orbits appear normal. Lung apices history bilateral apical opacities, incompletely visualized. Superficial soft tissues appear normal. Bones: No suspicious bony lesions. Visualized sinuses and mastoids appear unremarkable. IMPRESSION: 1. Stable appearance of bilateral level 3 lymph nodes, left greater than right, stable. 2. No visualized mass within the pharynx at site of primary neoplasm. 3. Incompletely visualized opacities within the lungs. Please see CT chest abdomen pelvis report for further details. Dictated by: Sylvie Tejeda M.D. on 01/10/2021 at 12:20 Approved by: Sylvie Tejeda M.D. on 01/10/2021 at 12:43
== END ==
PROVIDERS: PCP Internal Medicine; Referring Provider Internal Medicine; Visit Provider Internal Medicine
DX: C09.9 Malignant neoplasm of tonsil, unspecified (principal); C77.0 Secondary and unspecified malignant neoplasm of lymph nodes of head, face and neck; C78.00 Secondary malignant neoplasm of unspecified lung
CPT/HCPCS: 70491; 71260; 74177

== ENCOUNTER → 2021-03-20 12:10 | Outpatient (CLI) | payer MEDICARE, SELFPAY ==
--- NOTE | 2021-03-20 12:11 | DI.CT.S_ITS ---
PROCEDURE: CT SOFT TISSUE NECK W CON INDICATIONS: Follow-up head neck cancer with increasing cervical ONELIA TECHNIQUE: After the administration of intravenous contrast, 3.0 mm axial sections acquired from the sella to the aortic arch. Additional oblique axial 3.0 mm sections acquired through the pharynx. 3 mm thick coronal and sagittal reformats were generated. For radiation dose reduction, the following was used: automated exposure control. COMPARISON: [facility], CT, CT SOFT TISSUE NECK W CON, 01/10/2021, 9:13. FINDINGS: Image quality: Metallic spray artifact from dental amalgam limits several images. Lymph nodes: Left-sided level 3 node is again noted unchanged measuring 1.9 x 2.0 cm. Right-sided noted this level is not well visualized but appears similar to the prior as well. No new nodes. Vessels: Visualized vasculature appears patent. Neck spaces: There is been a right radical neck dissection including the right sternocleidomastoid and submandibular gland. The oropharynx, nasopharynx, and pharynx demonstrate no mucosal lesions. The vocal cords, false vocal cords, pyriform sinuses, epiglottis, vallecula, and tongue base all appear normal. Extramucosal spaces appear unremarkable. Glands: The parotid and submandibular glands appear normal. Thyroid gland low-density nodule in both lobes remains unchanged from the prior. Miscellaneous: Visualized brain and orbits appear normal. Biapical pulmonary scarring and atelectasis with emphysematous change in noted, stable from prior. Superficial soft tissues appear normal. Bones: No suspicious bony lesions. Visualized sinuses and mastoids appear unremarkable. Degenerative arthropathy noted particular on the left. IMPRESSION: 1. Stable CT of the neck without change from 01/10/2021 2. Dominant left-sided level 3 lymph node remains unchanged 3. Status post right radical neck dissection Dictated by: Gilmer Suárez M.D. on 03/20/2021 at 15:08 Approved by: Gilmer Suárez M.D. on 03/20/2021 at 15:25
--- NOTE | 2021-03-20 12:11 | DI.CT.S_ITS ---
PROCEDURE: CT CHEST ABD PEL W CON INDICATIONS: Follow-up head neck cancer with increasing cervical ONELIA TECHNIQUE: After the administration of oral and intravenous contrast, axial sections acquired from the supraclavicular neck to the pubic symphysis. Coronal and sagittal reformats were performed. For radiation dose reduction, the following was used: automated exposure control, adjustment of mA and/or kV according to patient size. COMPARISON:[facility], CT, CT CHEST ABD PEL W CON, 01/10/2021, 9:13. [facility], CT, CT CHEST ABD PEL W CON, 10/29/2020, 9:53. FINDINGS: Image quality: Excellent. CHEST: Lower Neck: No enlarged lymph nodes within the supraclavicular fossa and lower neck. Thyroid: A small right-sided 6 x 7 mm thyroid nodule has been previously documented and has not enlarged in size. Axillae: No enlarged lymph nodes. Chest Wall: Unremarkable. Lungs and Airways: No new consolidation or suspicious nodules. At the upper lobes bilaterally there is airspace disease that has been present chronically, with a pattern of upper lobe predominance raising question of whether this could represent tuberculosis or MAYRA sequela. No progression. Pleura: No pneumothorax or pleural effusions. Heart: Heart size is normal. No pericardial effusion. Thoracic Vessels: The aorta and pulmonary arteries demonstrate normal size. Mediastinum and Brianna: No enlarged lymph nodes. Esophagus: No wall thickening. No hiatal hernia. ABDOMEN: Liver: Unremarkable. Gallbladder: Normal Biliary ducts: Unremarkable. Pancreas: Unremarkable. Spleen: Unremarkable. Adrenal Glands: Unremarkable. Kidneys and Ureters: Unremarkable. Stomach and Bowel: Stomach, small bowel loops, and colon are unremarkable. Colonic obstipation. Peritoneum: No abnormal intraperitoneal fluid. No free air. Ventral Wall: No hernia. Abdominal Nodes: No retroperitoneal or mesenteric adenopathy by size criteria. Vessels: Aorta and inferior vena cava are normal in size. PELVIS: Pelvic Organs: Unremarkable. Bladder: Unremarkable. Pelvic Nodes: No enlarged lymph nodes. Miscellaneous: No inguinal hernias are seen. Generalized colonic obstipation. Bones: Unremarkable. IMPRESSION: 1. No interval development of adenopathy or metastatic disease. 2. Chronic lung disease at the upper lobes which has not progressed, in a pattern suggestive of old granulomatous disease such as tuberculosis or MAYRA. 3. Generalized colonic obstipation. Dictated by: Lebron Peralta M.D. on 03/20/2021 at 16:32 Approved by: Lebron Peralta M.D. on 03/20/2021 at 16:37
== END ==
PROVIDERS: PCP Internal Medicine; Referring Provider Internal Medicine Hematology & Oncology; Visit Provider Internal Medicine Hematology & Oncology
DX: C01 Malignant neoplasm of base of tongue; C79.89 Secondary malignant neoplasm of other specified sites; C78.02 Secondary malignant neoplasm of left lung; C77.0 Secondary and unspecified malignant neoplasm of lymph nodes of head, face and neck; R59.0 Localized enlarged lymph nodes; K59.00 Constipation, unspecified
CPT/HCPCS: 70491; 71260; 74177; Q9967

== ENCOUNTER → 2021-07-16 07:49 | Outpatient (CLI) | payer MEDICARE, SELFPAY ==
--- NOTE | 2021-07-16 07:51 | DI.CT.S_ITS ---
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 Coronal and sagittal reformats were performed. For radiation dose reduction, the following was used: automated exposure control, adjustment of mA and/or kV according to patient size. COMPARISON: [facility], CT, CT CHEST ABD PEL W CON, 03/20/2021, 13:56. FINDINGS: Image quality: Excellent. CHEST: Lower Neck: No enlarged lymph nodes. Thyroid: unchanged small right thyroid nodule. Axillae: No enlarged lymph nodes. Chest Wall: Unremarkable. Lungs and Airways: No significant change, focal biapical consolidative process with associated volume loss and bronchiectasis, possibly representing sequelae of TB or fungal infection. Findings are stable. No new or increasing pulmonary nodules. Mild emphysematous change. Pleura: No pneumothorax or pleural effusions. Heart: Heart size is normal. No pericardial effusion. Moderate coronary artery calcifications. Thoracic Vessels: The aorta and pulmonary arteries demonstrate normal size. Mediastinum and Brianna: No enlarged lymph nodes. Esophagus: No wall thickening. No hiatal hernia. ABDOMEN: Liver: Unremarkable. Gallbladder: Unremarkable. Biliary ducts: Unremarkable. Pancreas: Unremarkable. Spleen: Unremarkable. Adrenal Glands: Unremarkable. Kidneys and Ureters: Unremarkable. Stomach and Bowel: Stomach, small bowel loops, and colon are unremarkable. Peritoneum: No abnormal intraperitoneal fluid. No free air. Ventral Wall: No hernia. Abdominal Nodes: No retroperitoneal or mesenteric adenopathy by size criteria. Vessels: Aorta and inferior vena cava are normal in size. PELVIS: Pelvic Organs: Unremarkable. Bladder: Unremarkable. Pelvic Nodes: No enlarged lymph nodes. Miscellaneous: No inguinal hernias are seen. Bones: No lytic or blastic bony lesions. Lumbar degenerative change. IMPRESSION: 1. Chronic biapical consolidative process with associated atelectasis and scarring and bronchiectasis. Consider sequelae of previous TB or fungal infection. 2. Mild centrilobular emphysema. 3. Coronary artery disease. 4. No evidence of metastatic disease in the chest, abdomen, and pelvis. Dictated by: Constantin Lennon M.D. on 07/16/2021 at 11:40 Approved by: Constantin Lennon M.D. on 07/16/2021 at 11:47
--- NOTE | 2021-07-16 08:42 | DI.CT.S_ITS ---
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 Additional oblique axial 3.0 mm sections acquired through the pharynx. 3 mm thick coronal and sagittal reformats were generated. For radiation dose reduction, the following was used: automated exposure control. COMPARISON: [facility], CT, CT SOFT TISSUE NECK WITH CONTRAST, 05/06/2021, 11:33. FINDINGS: Image quality: Excellent. Lymph nodes: Left level 2/3 heterogeneously enhancing frank mass seen on the prior study has almost completely resolved. There are residual matted lymph nodes in the left level 2 and 3 stations with no threshold enlarged node or conglomerate mass. No evidence of lymphadenopathy otherwise in the neck or supraclavicular stations. Vessels: Visualized vasculature appears patent. Neck spaces: Postsurgical changes compatible with right radical neck dissection and post radiation changes in the neck bilaterally. No enhancing mucosal or submucosal mass identified. Glands: Atrophic changes of the submandibular and parotid glands, right greater than left. Multiple thyroid nodules not significantly changed from the prior study. Miscellaneous: No abnormal intracranial enhancement. No gross orbital abnormality. Paranasal sinuses and mastoid air cells are clear. Scarring in the lung apices is similar. Bones: No suspicious lytic or blastic osseous lesion. IMPRESSION: Essentially complete resolution of previously seen left level 2/3 frank mass. No evidence of lymphadenopathy in the neck currently. Residual non threshold enlarged lymph nodes in the left level 2/3 station are present. These could potentially contain some residual but are not metastatic disease but are not threshold enlarged or abnormally enhancing. Dictated by: Canelo Reyes M.D. on 07/16/2021 at 10:38 Approved by: Canelo Reyes M.D. on 07/16/2021 at 10:45
== END ==
PROVIDERS: PCP Internal Medicine; Referring Provider Internal Medicine; Visit Provider Internal Medicine
DX: C77.0 Secondary and unspecified malignant neoplasm of lymph nodes of head, face and neck (principal); C02.9 Malignant neoplasm of tongue, unspecified; C78.00 Secondary malignant neoplasm of unspecified lung; I25.10 Atherosclerotic heart disease of native coronary artery without angina pectoris; J98.11 Atelectasis; J98.4 Other disorders of lung; J43.2 Centrilobular emphysema
CPT/HCPCS: 70491; 71260; 74177; Q9967

== ENCOUNTER → 2022-10-16 06:41 | Outpatient (CLI) | payer MEDICARE, SELFPAY ==
[2022-10-16 08:23] LABS: Add Manual Diff / Slide Review NO; Basophils Absolute Auto 100 /uL (0-100); Basophils Percent Auto 1.2 % (0-2); Eosinophils Absolute Auto 200 /uL (0-450); Hematocrit 42.7 % (36-46); Hemoglobin 14.5 g/dL (12.0-16.0); Lymphocytes Absolute Auto 1800 /uL (1100-4500); Lymphocytes Percent Auto 32.5 % (25-40); Mean Corpuscular Hemoglobin 30.6 PG (26-34); Mean Corpuscular Volume 89.9 fL (80-100); Monocytes Absolute Auto 500 /uL (0-900); Monocytes Percent Auto 8.4 % (3-14); Neutrophils Absolute Auto 3000 /uL (1500-7000); Neutrophils Percent Auto 53.9 % (50-75); Platelet Count 266 X10^3/uL (150-400); Red Blood Cell Count 4.75 X10^6/uL (4.0-5.2); Red Cell Distribution Width 13.3 % (11.6-14.8); White Blood Cell Count 5.5 X10^3/uL (4.5-11.0)
[2022-10-16 08:45] LABS: Alanine Aminotransferase 30 IU/L (<35); Albumin 4.6 g/dL (3.5-5.0); Albumin Globulin Ratio 1.3 (1.0-2.8); Alkaline Phosphatase 51 U/L (38-126); Aspartate Aminotransferase 39 IU/L (14-36); BUN Creatinine Ratio 26.8 (6-22); Bilirubin Total 0.9 mg/dL (0.2-1.3); Blood Urea Nitrogen 22 mg/dL (7-17); Calcium 9.5 mg/dL (8.4-10.2); Carbon Dioxide 30 mmol/L (22-32); Chloride 100 mmol/L (98-107); Estimated Glomerular Filt Rate > 60 mL/min (>60); Globulin 3.5 g/dL (1.7-4.1); Glucose 104 mg/dL (80-110); HEMOLYSIS < 15 (0-50); Potassium 4.1 mmol/L (3.4-5.1); Sodium 137 mmol/L (137-145); Total Protein 8.1 g/dL (6.3-8.2)
== END ==
PROVIDERS: PCP Internal Medicine; Referring Provider Internal Medicine; Visit Provider Internal Medicine
DX: C09.9 Malignant neoplasm of tonsil, unspecified (principal); C77.0 Secondary and unspecified malignant neoplasm of lymph nodes of head, face and neck; E78.2 Mixed hyperlipidemia
CPT/HCPCS: 36415; 80053; 85025

== ENCOUNTER → 2023-10-26 06:38 | Outpatient (CLI) | payer MEDICARE, SELFPAY ==
[2023-10-26 07:43] LABS: Add Manual Diff / Slide Review NO; Basophils Absolute Auto 100 /uL (0-100); Basophils Percent Auto 1.3 % (0-2); Eosinophils Absolute Auto 200 /uL (0-450); Eosinophils Percent Auto 3.2 % (2-4); Hematocrit 41.9 % (36-46); Hemoglobin 14.2 g/dL (12.0-16.0); Lymphocytes Absolute Auto 1500 /uL (1100-4500); Lymphocytes Percent Auto 19.2 % (25-40); Mean Corpuscular HGB Conc 33.9 % (30-36); Mean Corpuscular Hemoglobin 30.2 PG (26-34); Mean Corpuscular Volume 89.2 fL (80-100); Monocytes Absolute Auto 600 /uL (0-900); Monocytes Percent Auto 7.4 % (3-14); Neutrophils Absolute Auto 5300 /uL (1500-7000); Neutrophils Percent Auto 68.9 % (50-75); Platelet Count 319 X10^3/uL (150-400); Red Cell Distribution Width 13.7 % (11.6-14.8); White Blood Cell Count 7.7 X10^3/uL (4.5-11.0)
[2023-10-26 07:54] LABS: Alanine Aminotransferase 24 IU/L (<35); Albumin 4.4 g/dL (3.5-5.0); Albumin Globulin Ratio 1.3 (1.0-2.8); Alkaline Phosphatase 53 U/L (38-126); Aspartate Aminotransferase 39 IU/L (14-36); BUN Creatinine Ratio 33.3 (6-22); Bilirubin Total 0.7 mg/dL (0.2-1.3); Blood Urea Nitrogen 25 mg/dL (7-17); Calcium 9.8 mg/dL (8.4-10.2); Carbon Dioxide 28 mmol/L (22-32); Chloride 98 mmol/L (98-107); Cholesterol 163 mg/dL (140-199); Estimated Glomerular Filt Rate > 60 mL/min (>60); Globulin 3.3 g/dL (1.7-4.1); Glucose 109 mg/dL (80-110); HDL Cholesterol 77 mg/dL (40-60); HEMOLYSIS < 15 (0-50); LDL Cholesterol Calculated 66 mg/dL (<100); Potassium 4.4 mmol/L (3.4-5.1); Sodium 136 mmol/L (137-145); Total Protein 7.7 g/dL (6.3-8.2); Triglycerides 102 mg/dL (35-150)
== END ==
LOC: LAB 06:39
PROVIDERS: PCP Internal Medicine; Referring Provider Internal Medicine; Visit Provider Internal Medicine
DX: C78.00 Secondary malignant neoplasm of unspecified lung (principal); E78.2 Mixed hyperlipidemia; C77.0 Secondary and unspecified malignant neoplasm of lymph nodes of head, face and neck
CPT/HCPCS: 36415; 80053; 80061; 85025

== ENCOUNTER → 2023-11-10 09:05 | Outpatient (CLI) | payer MEDICARE, SELFPAY | PROVIDERS: PCP Internal Medicine; Visit Provider Physician Assistant Surgical | DX: R31.9 Hematuria, unspecified (principal) | CPT/HCPCS: 87086 ==

== ENCOUNTER 2023-11-26 06:41 | Inpatient (IN) | payer MEDICARE, SELFPAY ==
[2023-11-26] VITALS (21 sets, daily range): BP systolic 98–137; BP diastolic 56–85; PULSE 66–95; RESP 18–37; TEMP 36.3–36.9; O2SAT 95–100; BMI 18.8
--- NOTE | 2023-11-26 | DI.CT.S_ITS ---
PROCEDURE: CT SOFT TISSUE NECK W CON INDICATIONS: HEMOPTOSIS TECHNIQUE: After the administration of intravenous contrast, 3.0 mm axial sections acquired from the sella to the aortic arch. Additional oblique axial 3.0 mm sections acquired through the pharynx. 3 mm thick coronal and sagittal reformats were generated. For radiation dose reduction, the following was used: automated exposure control. COMPARISON: [facility], CT, CT SOFT TISSUE NECK W CON, 07/16/2021, 8:45. [facility], CT, CT SOFT TISSUE NECK W CON, 03/20/2021, 13:56. FINDINGS: Image quality: Excellent. Lymph nodes: No new adenopathy seen throughout the neck. Vessels: Visualized vasculature appears patent. Neck spaces: Redemonstration of postsurgical changes of prior right radical neck dissection and post radiation changes bilaterally. Interval increase in ill-defined prominence involving the base of tongue on the left. A hostess party sales representative image is noted on image 3/series 4. No definable mass. There is a somewhat expansile appearance of the posterior margins on the left. Associated mass effect. Glands: The parotid and submandibular glands appear stable. Thyroid gland appear stable with nodular right thyroid lobe. Miscellaneous: Visualized brain and orbits appear normal. There are irregular pulmonary masses noted in the upper lobes bilaterally. Anteriorly in the right upper lobe measuring 2.6 x 2.5 cm in axial cross-sectional dimension (20/series 5). Left upper lobe mass measures 3.3 x 3.2 cm (25/series 5). Mild biapical scarring. Bones: No suspicious bony lesions. Visualized sinuses and mastoids appear unremarkable. No acute vertebral body compression fractures. Multilevel spondylitic changes throughout the imaged spine. No suspicious osseous lesions. Stable appearance of mild retrolisthesis of C5-6 relative to C4 and C7. IMPRESSION: 1. New irregular bilateral upper lobe pulmonary masses suspicious for malignancy although infectious etiology may have a similar appearance. Findings may explain history of hemoptysis. 2. Interval increase in ill-defined prominence/enlargement involving the left posterior aspect of the base of tongue suspicious for possible disease recurrence. There is associated mild mass effect. No new adenopathy identified in the neck. Recommend further evaluation with ENT consultation for direct visualization. 3. Stable postsurgical changes of the neck. Dictated by: Bertrand Gifford M.D. on 11/26/2023 at 8:18 Approved by: Bertrand Gifford M.D. on 11/26/2023 at 8:31
--- NOTE | 2023-11-26 06:48 | DI.RAD.S_ITS ---
PROCEDURE: XR CHEST 1V INDICATIONS: dyspnea TECHNIQUE: One view of the chest was acquired. COMPARISON: [facility], , CHEST 2 VIEW, 07/20/2008, 10:41. FINDINGS: Surgical changes and devices: None. Lungs and pleura: Bilateral hazy upper lobe and hilar opacities with retraction. Flattening of the diaphragm with hyperinflated lungs, most consistent with underlying COPD.. No pleural effusions or pneumothorax. Mediastinum: Mediastinal contours appear normal. Heart size is normal. Bones and chest wall: No suspicious bony lesions. Overlying soft tissues appear unremarkable. IMPRESSION: Upper lobe opacities with retraction of the jennifer. Findings may be infectious, however underlying neoplasm needs to be excluded. Recommend CT of the chest for further evaluation. Findings are concordant with preliminary interpretation provided by [facility]. Dictated by: Mateo Frausto M.D. on 11/26/2023 at 8:34 Approved by: Mateo Frausto M.D. on 11/26/2023 at 8:35
--- NOTE | 2023-11-26 06:52 | DI.CT.S_ITS ---
PROCEDURE: CT CHEST ABD PEL W CON INDICATIONS: hemoptosis TECHNIQUE: After the administration of intravenous contrast, 5 mm thick sections acquired from the lung apices to the symphysis. 5 mm coronal and sagittal reformats were performed, with additional 7 mm MIP reformats through the lungs. For radiation dose reduction, the following was used: automated exposure control, adjustment of mA and/or kV according to patient size. COMPARISON: [facility], CT, CT CHEST ABD PEL W CON, 07/16/2021, 8:45. [facility], CT, CT CHEST ABD PEL W CON, 03/20/2021, 13:56. FINDINGS: Image quality: Excellent. CHEST: Lower Neck: No enlarged lymph nodes. Thyroid: Stable appearance of nodular thyroid gland. Axillae: No enlarged lymph nodes. Chest Wall: Unremarkable. Lungs and Pleura: No pneumothorax or pleural effusion. New irregular pulmonary masses noted in the bilateral upper lobes and new irregular pulmonary nodules in the posterior, medial right lower lobe as well as new small pulmonary nodules in the bilateral lower lobes. Two irregular upper lobe masses noted in the region of previous biapical scarring. Largest mass is seen in the left upper lobe measuring 4.4 x 3.3 cm in axial cross-sectional dimension (86/series 4). Intraluminal soft tissue density material noted in the proximal airways of the right upper lobe medially. Heart: Heart size is normal. No pericardial effusion. Multivessel atherosclerotic calcifications of the coronary arteries. Thoracic Vessels: The aorta and pulmonary arteries demonstrate normal size. There is mass effect by new a hilar and mediastinal adenopathy with encasement of the right upper lobe pulmonary arteries. There are small pulmonary emboli involving proximal segments of the right upper lobe pulmonary arteries (example image noted on image 22/series 3). Mediastinum and Brianna: Multiple new enlarged mediastinal and right hilar lymph nodes with central low attenuation compatible with metastatic adenopathy with central necrosis. Largest right hilar lymph node measures approximately 3.6 x 3.3 cm (27/series 3). Largest mediastinal lymph node measures approximately 2.3 cm (25/series 3) demonstrating mass effect upon the anterior right margin of the jonathan. Esophagus: No wall thickening. No hiatal hernia. ABDOMEN: Liver: No solid mass. Gallbladder: No radiopaque gallstones or wall thickening. Biliary ducts: No biliary dilation. Pancreas: No ductal dilation. Spleen: Size is within normal limits. Adrenal Glands: No adrenal nodules. Kidneys and Ureters: No hydronephrosis. No solid mass. No complex renal cystic lesion which requires follow up. Stomach and Bowel: Normal colonic caliber, without significant wall thickening. Colonic diverticulosis without acute diverticulitis. Peritoneum: No abnormal intraperitoneal fluid. No free air. Ventral Wall: No significant ventral hernia. Abdominal Nodes: No retroperitoneal or mesenteric adenopathy by size criteria. Vessels: Scattered atherosclerotic calcifications of the abdominal aorta and iliac vessels without aneurysmal dilatation. The inferior vena cava appears patent. PELVIS: Pelvic Organs: Unremarkable. Bladder: No bladder wall thickening, accounting for underdistention. Pelvic Nodes: No enlarged lymph nodes. Miscellaneous: No inguinal hernias are seen. Bones: No acute vertebral body compression fractures. Multilevel spondylitic changes throughout the imaged spine. No suspicious osseous lesions. IMPRESSION: 1. Multiple new bilateral pulmonary masses/nodules as described above with associated right hilar and mediastinal adenopathy. Findings are suspicious for primary pulmonary neoplasm versus pulmonary metastases given prior history of head/neck cancer with associated metastatic hilar and mediastinal adenopathy. 2. Small pulmonary emboli involving the proximal segments of the right upper lobe pulmonary artery as well as intraluminal filling defects of right upper lobe airways. No evidence for acute cardiopulmonary abnormalities or acute right-sided heart strain. 3. Other chronic findings as above. Dictated by: Bertrand Gifford M.D. on 11/26/2023 at 8:35 Approved by: Bertrand Gifford M.D. on 11/26/2023 at 8:58
--- NOTE | 2023-11-26 06:54 | ED.GENADULT ---
HPI - General Adult <Marina Ledbetter MD - Last Filed: 11/27/23 05:38> General Chief complaint: Shortness of Breath/Dyspnea Stated complaint: SOB comfort measures Time Seen by Provider: 11/26/23 06:47 Related Data Home Medications Medication Instructions Recorded Confirmed glucosamine sulfate 500 mg tablet 500 mg PO BID 04/26/18 11/26/23 (Glucosamine) cinnamon bark 500 mg capsule 1,000 mg PO DAILY 11/09/18 11/26/23 (Cinnamon) multivitamin 1 tab PO DAILY 11/03/23 11/26/23 omega 9-ddb-[id number]-fish oil 1,000 mg 1 cap PO DAILY 11/03/23 11/26/23 (120 mg-180 mg) capsule (Fish Oil) dexamethasone 0.5 mg/5 mL oral 0.5 mg PO DAILY 11/25/23 11/26/23 solution alprazolam 0.25 mg tablet 0.25 mg PO Q48H 11/26/23 11/26/23 citalopram 20 mg tablet (Celexa) 20 mg PO DAILY 11/26/23 11/26/23 simvastatin 40 mg tablet 20 mg PO BEDTIME 11/26/23 11/26/23 zolpidem 10 mg tablet 5 mg PO Q48H insomnia 11/26/23 11/26/23 Allergies Allergy/AdvReac Type Severity Reaction Status Date / Time oxycodone AdvReac Verified 11/25/23 07:43 <Kee Alcantar MD - Last Filed: 11/27/23 08:02> History of Present Illness HPI narrative: patient here with family. Complains of hemoptysis and shortness of breath. Patient states she is DNR DNI with comfort measures only. She has metastatic cancer. Patient states she has had hemoptysis in the morning time. Seen at urgent care yesterday. She is amenable to blood work antibiotics and BiPAP. Patient sees primary care Dr. Mendoza. Patient does not want any intubation or CPR. Patient is not on any blood thinners. Review of Systems <Kee Alcantar MD - Last Filed: 11/27/23 08:02> Review of Systems Narrative: GENERAL: negative chills, fatigue, malaise, fever, sweats. 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/hoahaoism: [employer] leisure activities: art, reading and other Smoking Status: Former smoker Tobacco: How many years used: 20 Smokeless tobacco user: other quit status: quit date established second hand exposure: Yes (Childhood.) alcohol intake: current substance use type: does not use Smoking Status: Former smoker Exam <Marina Ledbetter MD - Last Filed: 11/27/23 05:38> Initial Vital Signs Initial Vital Signs: Vital Signs Temperature 98.4 F 11/26/23 06:55 Pulse Rate 95 H 11/26/23 06:55 Respiratory Rate 20 11/26/23 06:55 Blood Pressure 99/56 L 11/26/23 06:55 Pulse Oximetry 96 11/26/23 06:55 Oxygen Delivery Method Nasal Cannula 11/26/23 06:55 Oxygen Flow Rate 2 11/26/23 06:55 <Kee Alcantar MD - Last Filed: 11/27/23 08:02> Narrative Exam Narrative: GENERAL: in no distress, not toxic not dyspneic HEAD: Normocephalic. EYES: Pupils equal round ENT: Mucous membranes moist. NECK: Trachea midline. CARDIOVASCULAR: Regular rate and rhythm RESPIRATORY: Patient has declined BiPAP. He is on nasal cannula 2 L. Speaking full sentences. Coarse lung sounds bilaterally and diminished bilaterally. No respiratory distress at this time. Blood clots noted on earlier hemoptysis. GASTROINTESTINAL: Abdomen soft, non-tender EXTREMITIES: No gross deformities. BACK: No flank tenderness. NEURO: AOx4. SKIN: Warm and dry PSYCH: Not anxious, is cooperative Initial Vital Signs Initial Vital Signs: Vital Signs Temperature 98.4 F 11/26/23 06:55 Pulse Rate 95 H 11/26/23 06:55 Respiratory Rate 20 11/26/23 06:55 Blood Pressure 99/56 L 11/26/23 06:55 Pulse Oximetry 96 11/26/23 06:55 Oxygen Delivery Method Nasal Cannula 11/26/23 06:55 Oxygen Flow Rate 2 11/26/23 06:55 Course <Marina Ledbetter MD - Last Filed: 11/27/23 05:38> Orders Ordered: Acetaminophen (Acetaminophen 325 Mg Tablet) 650 mg PO Q6H PRN PRN Reason: Fever/Mild Pain (1-3) Hydrocodone Bitart/Acetaminophen (Hydrocodone/Acet 5/325 Tablet) 2 tab PO Q4H PRN PRN Reason: Pain, Severe (7-10) Hydrocodone Bitart/Acetaminophen (Hydrocodone/Acet 5/325 Tablet) 1 tab PO Q4H PRN PRN Reason: Pain, Moderate (4-6) Citalopram Hydrobromide (Citalopram 10 Mg Tablet) 20 mg PO DAILY [facility] Hydromorphone HCl (Hydromorphone 0.5 Mg Inj) 0.5 mg IV Q2H PRN PRN Reason: Pain, Severe (7-10) Lorazepam (Lorazepam 2 Mg/Ml Inj) 1 mg IV Q4HR PRN PRN Reason: Anxiety Last Admin: 11/26/23 20:52 Dose: 1 mg Documented By: Naloxone HCl (Naloxone 0.4 Mg/Ml Vial) 0.2 mg IV Q2MIN PRN PRN Reason: Opiate Reversal Ondansetron HCl (Ondansetron 4 Mg/2 Ml Inj) 4 mg IV Q8HR PRN PRN Reason: Nausea And Vomiting Zolpidem Tartrate (Zolpidem 5 Mg Tablet) 10 mg PO BEDTIME [facility] Last Admin: 11/26/23 20:52 Dose: 10 mg Documented By: Discontinued Medications Sodium Chloride (Normal Saline 0.9%) 1,000 mls @ 1,000 mls/hr IV BOLUS ONE Stop: 11/26/23 07:46 Last Infusion: 11/26/23 08:29 Dose: Infused Documented By: Admin: 11/26/23 07:10 Dose: 1,000 mls/hr Documented By: ADOLPH Vital Signs Vital signs: Vital Signs - 8 hr 11/26/23 06:55 11/26/23 07:00 11/26/23 07:00 Temperature 98.4 F Pulse Rate 95 H 91 H Respiratory Rate 20 30 H Blood Pressure 99/56 L 98/60 Pulse Oximetry 96 95 Oxygen Delivery Method Nasal Cannula Nasal Cannula Oxygen Flow Rate 2 11/26/23 07:15 11/26/23 07:30 11/26/23 07:45 Temperature Pulse Rate 85 76 72 Respiratory Rate 34 H 23 34 H Blood Pressure Pulse Oximetry 96 96 100 Oxygen Delivery Method Nasal Cannula Oxygen Flow Rate 11/26/23 07:46 11/26/23 07:46 11/26/23 08:00 Temperature Pulse Rate 72 Respiratory Rate 26 H Blood Pressure 124/58 L 122/56 L Pulse Oximetry 100 Oxygen Delivery Method Nasal Cannula Oxygen Flow Rate 2 11/26/23 08:00 11/26/23 08:15 11/26/23 08:30 Temperature Pulse Rate 68 66 67 Respiratory Rate 30 H 29 H 32 H Blood Pressure Pulse Oximetry 99 100 99 Oxygen Delivery Method Nasal Cannula Nasal Cannula Oxygen Flow Rate 2 2 11/26/23 08:30 11/26/23 08:45 Temperature Pulse Rate 66 Respiratory Rate 34 H Blood Pressure 120/84 Pulse Oximetry 99 Oxygen Delivery Method Nasal Cannula Oxygen Flow Rate 2 <Kee Alcantar MD - Last Filed: 11/27/23 08:02> Orders Ordered: Acetaminophen (Acetaminophen 325 Mg Tablet) 650 mg PO Q6H PRN PRN Reason: Fever/Mild Pain (1-3) Hydrocodone Bitart/Acetaminophen (Hydrocodone/Acet 5/325 Tablet) 2 tab PO Q4H PRN PRN Reason: Pain, Severe (7-10) Hydrocodone Bitart/Acetaminophen (Hydrocodone/Acet 5/325 Tablet) 1 tab PO Q4H PRN PRN Reason: Pain, Moderate (4-6) Citalopram Hydrobromide (Citalopram 10 Mg Tablet) 20 mg PO DAILY [facility] Hydromorphone HCl (Hydromorphone 0.5 Mg Inj) 0.5 mg IV Q2H PRN PRN Reason: Pain, Severe (7-10) Lorazepam (Lorazepam 2 Mg/Ml Inj) 1 mg IV Q4HR PRN PRN Reason: Anxiety Last Admin: 11/26/23 20:52 Dose: 1 mg Documented By: Naloxone HCl (Naloxone 0.4 Mg/Ml Vial) 0.2 mg IV Q2MIN PRN PRN Reason: Opiate Reversal Ondansetron HCl (Ondansetron 4 Mg/2 Ml Inj) 4 mg IV Q8HR PRN PRN Reason: Nausea And Vomiting Zolpidem Tartrate (Zolpidem 5 Mg Tablet) 10 mg PO BEDTIME [facility]ATE[facility] Last Admin: 11/26/23 20:52 Dose: 10 mg Documented By: Discontinued Medications Sodium Chloride (Normal Saline 0.9%) 1,000 mls @ 1,000 mls/hr IV BOLUS ONE Stop: 11/26/23 07:46 Last Infusion: 11/26/23 08:29 Dose: Infused Documented By: Admin: 11/26/23 07:10 Dose: 1,000 mls/hr Documented By: ADOLPH Vital Signs Vital signs: Vital Signs - 8 hr 11/26/23 06:55 11/26/23 07:00 11/26/23 07:00 Temperature 98.4 F Pulse Rate 95 H 91 H Respiratory Rate 20 30 H Blood Pressure 99/56 L 98/60 Pulse Oximetry 96 95 Oxygen Delivery Method Nasal Cannula Nasal Cannula Oxygen Flow Rate 2 11/26/23 07:15 11/26/23 07:30 11/26/23 07:45 Temperature Pulse Rate 85 76 72 Respiratory Rate 34 H 23 34 H Blood Pressure Pulse Oximetry 96 96 100 Oxygen Delivery Method Nasal Cannula Oxygen Flow Rate 11/26/23 07:46 11/26/23 07:46 11/26/23 08:00 Temperature Pulse Rate 72 Respiratory Rate 26 H Blood Pressure 124/58 L 122/56 L Pulse Oximetry 100 Oxygen Delivery Method Nasal Cannula Oxygen Flow Rate 2 11/26/23 08:00 11/26/23 08:15 11/26/23 08:30 Temperature Pulse Rate 68 66 67 Respiratory Rate 30 H 29 H 32 H Blood Pressure Pulse Oximetry 99 100 99 Oxygen Delivery Method Nasal Cannula Nasal Cannula Oxygen Flow Rate 2 2 11/26/23 08:30 11/26/23 08:45 Temperature Pulse Rate 66 Respiratory Rate 34 H Blood Pressure 120/84 Pulse Oximetry 99 Oxygen Delivery Method Nasal Cannula Oxygen Flow Rate 2 Medical Decision Making <Marina Ledbetter MD - Last Filed: 11/27/23 05:38> Lab Data 11/27/23 07:10 11/26/23 06:30 Labs: Lab Results 11/26/23 11/26/23 Range/Units 06:30 07:23 WBC 10.3 (4.5-11.0) X10^3/uL RBC 4.61 (4.0-5.2) X10^6/uL Hgb 13.7 (12.0-16.0) g/dL Hct 40.5 (36-46) % MCV 87.9 (80-100) fL MCH 29.7 (26-34) PG MCHC 33.8 (30-36) % RDW 13.4 (11.6-14.8) % Plt Count 374 (150-400) X10^3/uL Neut % (Auto) 66.9 (50-75) % Lymph % (Auto) 22.6 L (25-40) % Lyon % (Auto) 7.8 (3-14) % Eos % (Auto) 1.9 L (2-4) % Baso % (Auto) 0.8 (0-2) % Neut # (Auto) 6900 (4666-5536) /uL Lymph # (Auto) 2300 (9685-2408) /uL Lyon # (Auto) 800 (0-900) /uL Eos # (Auto) 200 (0-450) /uL Baso # (Auto) 100 (0-100) /uL D-Dimer 790 H (<500) ng/ml VBG pH 7.42 (7.33-7.43) VBG pCO2 42.0 L (45-50) mmHg VBG pO2 21 L (35-45) mmHg VBG HCO3 27 (24-28) mmol/L VBG Total CO2 29 (24-29) mmol/L VBG O2 Saturation 36 L (70-75) % VBG Base Excess 3.0 (0-4) mmol/L FiO2 28 Sodium 137 (137-145) mmol/L Potassium 4.1 (3.4-5.1) mmol/L Chloride 100 (98-107) mmol/L Carbon Dioxide 28 (22-32) mmol/L BUN 25 H (7-17) mg/dL Creatinine 0.72 (0.52-1.04) mg/dL Estimated GFR > 60 (>60) mL/min BUN/Creatinine Ratio 34.7 H (6-22) Glucose 121 H (80-110) mg/dL Lactate 0.7 (0.7-2.1) mmol/L Calcium 9.7 (8.4-10.2) mg/dL Total Bilirubin 0.9 (0.2-1.3) mg/dL AST 41 H (14-36) IU/L ALT 28 (<35) IU/L Alkaline Phosphatase 75 (38-126) U/L Troponin I < 0.012 (0.01-0.034) ng/mL Total Protein 8.9 H (6.3-8.2) g/dL Albumin 4.6 (3.5-5.0) g/dL Globulin 4.3 H (1.7-4.1) g/dL Albumin/Globulin Ratio 1.1 (1.0-2.8) Lipase 186 (23-300) U/L Procalcitonin 0.06 (<0.5) ng/mL <Kee Alcantar MD - Last Filed: 11/27/23 08:02> Lab Data Labs: Lab Results 11/26/23 11/26/23 Range/Units 06:30 07:23 WBC 10.3 (4.5-11.0) X10^3/uL RBC 4.61 (4.0-5.2) X10^6/uL Hgb 13.7 (12.0-16.0) g/dL Hct 40.5 (36-46) % MCV 87.9 (80-100) fL MCH 29.7 (26-34) PG MCHC 33.8 (30-36) % RDW 13.4 (11.6-14.8) % Plt Count 374 (150-400) X10^3/uL Neut % (Auto) 66.9 (50-75) % Lymph % (Auto) 22.6 L (25-40) % Lyon % (Auto) 7.8 (3-14) % Eos % (Auto) 1.9 L (2-4) % Baso % (Auto) 0.8 (0-2) % Neut # (Auto) 6900 (2965-0864) /uL Lymph # (Auto) 2300 (0299-4778) /uL Lyon # (Auto) 800 (0-900) /uL Eos # (Auto) 200 (0-450) /uL Baso # (Auto) 100 (0-100) /uL D-Dimer 790 H (<500) ng/ml VBG pH 7.42 (7.33-7.43) VBG pCO2 42.0 L (45-50) mmHg VBG pO2 21 L (35-45) mmHg VBG HCO3 27 (24-28) mmol/L VBG Total CO2 29 (24-29) mmol/L VBG O2 Saturation 36 L (70-75) % VBG Base Excess 3.0 (0-4) mmol/L FiO2 28 Sodium 137 (137-145) mmol/L Potassium 4.1 (3.4-5.1) mmol/L Chloride 100 (98-107) mmol/L Carbon Dioxide 28 (22-32) mmol/L BUN 25 H (7-17) mg/dL Creatinine 0.72 (0.52-1.04) mg/dL Estimated GFR > 60 (>60) mL/min BUN/Creatinine Ratio 34.7 H (6-22) Glucose 121 H (80-110) mg/dL Lactate 0.7 (0.7-2.1) mmol/L Calcium 9.7 (8.4-10.2) mg/dL Total Bilirubin 0.9 (0.2-1.3) mg/dL AST 41 H (14-36) IU/L ALT 28 (<35) IU/L Alkaline Phosphatase 75 (38-126) U/L Troponin I < 0.012 (0.01-0.034) ng/mL Total Protein 8.9 H (6.3-8.2) g/dL Albumin 4.6 (3.5-5.0) g/dL Globulin 4.3 H (1.7-4.1) g/dL Albumin/Globulin Ratio 1.1 (1.0-2.8) Lipase 186 (23-300) U/L Procalcitonin 0.06 (<0.5) ng/mL Imaging Data CT chest abdomen pelvis: Radiologist's Impression: [address] [address] [address] Scan Report Signed Patient: Kacey Case MR#: [id number] : 1940 Acct:[id number] Age/Sex: 83 / F Date of Service: 11/26/23 Loc: ED Accession Number: [id number] Procedure: CT chest abd pel w con Ordering Provider: Marina Ledbetter MD PROCEDURE: CT CHEST ABD PEL W CON INDICATIONS: hemoptosis TECHNIQUE: After the administration of intravenous contrast, 5 mm thick sections acquired from the lung apices to the symphysis. 5 mm coronal and sagittal reformats were performed, with additional 7 mm MIP reformats through the lungs. For radiation dose reduction, the following was used: automated exposure control, adjustment of mA and/or kV according to patient size. COMPARISON: [facility], CT, CT CHEST ABD PEL W CON, 07/16/2021, 8:45. [facility], CT, CT CHEST ABD PEL W CON, 03/20/2021, 13:56. FINDINGS: Image quality: Excellent. CHEST: Lower Neck: No enlarged lymph nodes. Thyroid: Stable appearance of nodular thyroid gland. Axillae: No enlarged lymph nodes. Chest Wall: Unremarkable. Lungs and Pleura: No pneumothorax or pleural effusion. New irregular pulmonary masses noted in the bilateral upper lobes and new irregular pulmonary nodules in the posterior, medial right lower lobe as well as new small pulmonary nodules in the bilateral lower lobes. Two irregular upper lobe masses noted in the region of previous biapical scarring. Largest mass is seen in the left upper lobe measuring 4.4 x 3.3 cm in axial cross-sectional dimension (86/series 4). Intraluminal soft tissue density material noted in the proximal airways of the right upper lobe medially. Heart: Heart size is normal. No pericardial effusion. Multivessel atherosclerotic calcifications of the coronary arteries. Thoracic Vessels: The aorta and pulmonary arteries demonstrate normal size. There is mass effect by new a hilar and mediastinal adenopathy with encasement of the right upper lobe pulmonary arteries. There are small pulmonary emboli involving proximal segments of the right upper lobe pulmonary arteries (example image noted on image 22/series 3). Mediastinum and Brianna: Multiple new enlarged mediastinal and right hilar lymph nodes with central low attenuation compatible with metastatic adenopathy with central necrosis. Largest right hilar lymph node measures approximately 3.6 x 3.3 cm (27/series 3). Largest mediastinal lymph node measures approximately 2.3 cm (25/series 3) demonstrating mass effect upon the anterior right margin of the jonathan. Esophagus: No wall thickening. No hiatal hernia. ABDOMEN: Liver: No solid mass. Gallbladder: No radiopaque gallstones or wall thickening. Biliary ducts: No biliary dilation. Pancreas: No ductal dilation. Spleen: Size is within normal limits. Adrenal Glands: No adrenal nodules. Kidneys and Ureters: No hydronephrosis. No solid mass. No complex renal cystic lesion which requires follow up. Stomach and Bowel: Normal colonic caliber, without significant wall thickening. Colonic diverticulosis without acute diverticulitis. Peritoneum: No abnormal intraperitoneal fluid. No free air. Ventral Wall: No significant ventral hernia. Abdominal Nodes: No retroperitoneal or mesenteric adenopathy by size criteria. Vessels: Scattered atherosclerotic calcifications of the abdominal aorta and iliac vessels without aneurysmal dilatation. The inferior vena cava appears patent. PELVIS: Pelvic Organs: Unremarkable. Bladder: No bladder wall thickening, accounting for underdistention. Pelvic Nodes: No enlarged lymph nodes. Miscellaneous: No inguinal hernias are seen. Bones: No acute vertebral body compression fractures. Multilevel spondylitic changes throughout the imaged spine. No suspicious osseous lesions. IMPRESSION: 1. Multiple new bilateral pulmonary masses/nodules as described above with associated right hilar and mediastinal adenopathy. Findings are suspicious for primary pulmonary neoplasm versus pulmonary metastases given prior history of head/neck cancer with associated metastatic hilar and mediastinal adenopathy. 2. Small pulmonary emboli involving the proximal segments of the right upper lobe pulmonary artery as well as intraluminal filling defects of right upper lobe airways. No evidence for acute cardiopulmonary abnormalities or acute right-sided heart strain. 3. Other chronic findings as above. Dictated by: Bertrand Gifford M.D. on 11/26/2023 at 8:35 Approved by: Bertrand Gifford M.D. on 11/26/2023 at 8:58 CT soft tissue neck: Radiologist's Impression: [address] [address] [address] Scan Report Signed Patient: Kacey Case MR#: [id number] : 1940 Acct:[id number] Age/Sex: 83 / F Date of Service: 11/26/23 Loc: ED Accession Number: [id number] Procedure: CT soft tissue neck w con Ordering Provider: Marina Ledbetter MD PROCEDURE: CT SOFT TISSUE NECK W CON INDICATIONS: HEMOPTOSIS TECHNIQUE: After the administration of intravenous contrast, 3.0 mm axial sections acquired from the sella to the aortic arch. Additional oblique axial 3.0 mm sections acquired through the pharynx. 3 mm thick coronal and sagittal reformats were generated. For radiation dose reduction, the following was used: automated exposure control. COMPARISON: [facility], CT, CT SOFT TISSUE NECK W CON, 07/16/2021, 8:45. [facility], CT, CT SOFT TISSUE NECK W CON, 03/20/2021, 13:56. FINDINGS: Image quality: Excellent. Lymph nodes: No new adenopathy seen throughout the neck. Vessels: Visualized vasculature appears patent. Neck spaces: Redemonstration of postsurgical changes of prior right radical neck dissection and post radiation changes bilaterally. Interval increase in ill-defined prominence involving the base of tongue on the left. A home office representative image is noted on image 3/series 4. No definable mass. There is a somewhat expansile appearance of the posterior margins on the left. Associated mass effect. Glands: The parotid and submandibular glands appear stable. Thyroid gland appear stable with nodular right thyroid lobe. Miscellaneous: Visualized brain and orbits appear normal. There are irregular pulmonary masses noted in the upper lobes bilaterally. Anteriorly in the right upper lobe measuring 2.6 x 2.5 cm in axial cross-sectional dimension (20/series 5). Left upper lobe mass measures 3.3 x 3.2 cm (25/series 5). Mild biapical scarring. Bones: No suspicious bony lesions. Visualized sinuses and mastoids appear unremarkable. No acute vertebral body compression fractures. Multilevel spondylitic changes throughout the imaged spine. No suspicious osseous lesions. Stable appearance of mild retrolisthesis of C5-6 relative to C4 and C7. IMPRESSION: 1. New irregular bilateral upper lobe pulmonary masses suspicious for malignancy although infectious etiology may have a similar appearance. Findings may explain history of hemoptysis. 2. Interval increase in ill-defined prominence/enlargement involving the left posterior aspect of the base of tongue suspicious for possible disease recurrence. There is associated mild mass effect. No new adenopathy identified in the neck. Recommend further evaluation with ENT consultation for direct visualization. 3. Stable postsurgical changes of the neck. Dictated by: Bertrand Gifford M.D. on 11/26/2023 at 8:18 Approved by: Bertrand Gifford M.D. on 11/26/2023 at 8:[address] [facility] Narrative Medical decision making narrative: patient here with family. Complains of hemoptysis and shortness of breath. Patient states she is DNR DNI with comfort measures only. She has metastatic cancer. Patient states she has had hemoptysis in the morning time. Seen at urgent care yesterday. She is amenable to blood work antibiotics and BiPAP. Patient sees primary care Dr. Mendoza. Patient does not want any intubation or CPR. Patient is not on any blood thinners. After history and examCBC CMP chest x-ray EKG CT soft tissue neck chest abdomen pelvis PT INR [facility] CC: hemoptysis Complicating co-morbidities: metastatic cancer Data collected from: patient and family Medical records reviewed: urgent care visit yesterday Differential considered: Includes but not limited to metastatic lung cancer pulmonary embolism Exam documented above, pertinent findings include: blood clots on hemoptysis Lab Test results independently reviewed as above. Pertinent findings: WBC 10.3 hemoglobin 13.7 Independently reviewed EKG EKG normal sinus rhythm rate [address] elevation or depression Imaging studies independently reviewed: bilateral upper lobe opacities either pneumonic or neoplastic Consultations: 9:20 a.m.Spoke with primary care, Dr. Mendoza, who will admit patient Treatments: normal saline Re-evaluations: 8:15 a.m.. Patient has her good friend / neighbor who is a retired nurse at bedside. They wish to discuss about treatment plan. Patient has made it abundantly clear, she is awake alert oriented x4, that she does not not not want any treatment for cancer. It has been 5 years since she is seen Oncology. She has not aware that there is involvement of the lungs. Patient airway intact at this time. 2 L nasal cannula. She continues her wish for DNR DNI as well as comfort measures but is amenable to IV antibiotics as well as BiPAP. She does not want CPR. She does not want ventilator support. She does agree for admission. She does agree to have conversation for hospice care while here. I did review a POLST form that she provided here. She did not mean to have the selective treatments marked. The X on this box is in blue and different from the remaining portion of the POLST form. She does not know how that got there. 9:27 a.m.. Updated patient and family results. No blood thinners at this time with the pulmonary emboli because of bleeding. They do agree for admit. Discussion: appropriate for admission for observation for hemoptysis as well as beginning process for hospice care. Patient and family agree and understand need for admit and agree with treatment plan. Diagnosis: hemoptysis pulmonary emboli, metastatic cancer Discharge Plan Departure Patient Disposition: Admitted as Observation Clinical Impression: Cough with hemoptysis Admit Date/Time: 11/26/23 09:27 Admit Provider: Dallas Mendoza
[2023-11-26 06:55] LABS: Add Manual Diff / Slide Review NO; Basophils Absolute Auto 100 /uL (0-100); Basophils Percent Auto 0.8 % (0-2); Eosinophils Absolute Auto 200 /uL (0-450); Eosinophils Percent Auto 1.9 % (2-4); Hematocrit 40.5 % (36-46); Hemoglobin 13.7 g/dL (12.0-16.0); Lymphocytes Absolute Auto 2300 /uL (1100-4500); Lymphocytes Percent Auto 22.6 % (25-40); Mean Corpuscular HGB Conc 33.8 % (30-36); Mean Corpuscular Hemoglobin 29.7 PG (26-34); Mean Corpuscular Volume 87.9 fL (80-100); Monocytes Absolute Auto 800 /uL (0-900); Monocytes Percent Auto 7.8 % (3-14); Neutrophils Absolute Auto 6900 /uL (1500-7000); Neutrophils Percent Auto 66.9 % (50-75); Platelet Count 374 X10^3/uL (150-400); Red Blood Cell Count 4.61 X10^6/uL (4.0-5.2); Red Cell Distribution Width 13.4 % (11.6-14.8); White Blood Cell Count 10.3 X10^3/uL (4.5-11.0)
[2023-11-26 07:08] LABS: D Dimer 790 ng/ml (<500)
[2023-11-26 07:10] LABS: Alanine Aminotransferase 28 IU/L (<35); Albumin 4.6 g/dL (3.5-5.0); Albumin Globulin Ratio 1.1 (1.0-2.8); Alkaline Phosphatase 75 U/L (38-126); Aspartate Aminotransferase 41 IU/L (14-36); BUN Creatinine Ratio 34.7 (6-22); Bilirubin Total 0.9 mg/dL (0.2-1.3); Blood Urea Nitrogen 25 mg/dL (7-17); Calcium 9.7 mg/dL (8.4-10.2); Carbon Dioxide 28 mmol/L (22-32); Chloride 100 mmol/L (98-107); Estimated Glomerular Filt Rate > 60 mL/min (>60); Globulin 4.3 g/dL (1.7-4.1); Glucose 121 mg/dL (80-110); HEMOLYSIS 18 (0-50); Lipase 186 U/L (23-300); Potassium 4.1 mmol/L (3.4-5.1); Sodium 137 mmol/L (137-145); Total Protein 8.9 g/dL (6.3-8.2)
[2023-11-26] MEDS: SODIUM CHLORIDE 0.9% 1,000 ML 1000 ML IV (07:10)
[2023-11-26 07:11] LABS: Lactate (Lactic Acid) 0.7 mmol/L (0.7-2.1)
[2023-11-26 07:21] LABS: Troponin I < 0.012 ng/mL (0.01-0.034)
[2023-11-26 07:26] LABS: Procalcitonin 0.06 ng/mL (<0.5)
[2023-11-26 07:44] LABS: pH VBG 7.42 (7.33-7.43)
[2023-11-26 07:45] LABS: Fractionated Inspired Oxygen 28; HCO3 VBG 27 mmol/L (24-28); Oxygen Saturation VBG 36 % (70-75); PO2 VBG 21 mmHg (35-45); Total CO2 VBG 29 mmol/L (24-29)
--- NOTE | 2023-11-26 09:27 | PM.HP.1 ---
History of Present Illness History of Present Illness Date Patient Seen: 11/26/23 Time Patient Seen: 09:27 Chief complaint: SOB comfort measures Narrative: 83-year-old female well known to me, last seen in October but since then apparently been having increasing shortness of breath and very recently has begun having hemoptysis. She describes the hemoptysis generally as first thing in the morning only and then she coughs some through the rest of the day with no blood. Has been seen by 1 of my colleagues in the primary care clinic and then the walk-in clinic for these issues. 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 In the ER she was easy to re oxygenate with oxygen, blood counts are stable etcetera. Hemodynamically she has been quite stable. Patient is quite adamant she desires no further treatment of any sort for cancer. She would prefer to explore hospice/palliative care at this stage. She would like absolutely no heroic interventions whatsoever, although apparently per ER physician is okay with BiPAP if that becomes necessary for respiratory distress. 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/confucianism: Ep[employer]op[employer] leisure activities: art, reading and other Smoking Status: Former smoker Tobacco: How many years used: 20 Smokeless tobacco user: other quit status: quit date established second hand exposure: Yes (Childhood.) alcohol intake: current substance use type: does not use Meds Home Medications and Allergies Home Medications Medication Instructions Recorded Confirmed Type glucosamine sulfate 500 mg tablet 500 mg PO BID 04/26/18 11/25/23 History (Glucosamine) cinnamon bark 500 mg capsule 1,000 mg PO DAILY 11/09/18 11/25/23 History (Cinnamon) betamethasone dipropionate 0.05 % 1 applictn topical BID #60 grams 01/13/19 11/25/23 Rx topical ointment acyclovir 800 mg tablet 800 mg PO 5XD PRN Cold Sores #35 11/07/22 11/25/23 Rx tabs simvastatin 40 mg tablet 40 mg PO QDAY #90 tabs 11/11/22 11/25/23 Rx citalopram 20 mg tablet (Celexa) 20 mg PO QDAY ##90 03/16/23 11/25/23 Rx zolpidem 10 mg tablet 10 mg PO BEDTIME PRN insomnia #30 06/18/23 11/25/23 Rx tabs alprazolam 0.25 mg tablet 0.25 mg PO HS #60 tabs 07/31/23 11/25/23 Rx multivitamin 1 tab PO DAILY 11/03/23 11/25/23 History omega 5-cep-ljp-fish oil 1,000 mg 1 cap PO DAILY 11/03/23 11/25/23 History (120 mg-180 mg) capsule (Fish Oil) triamcinolone acetonide 0.1 % 1 applic topical TID #15 grams 11/03/23 11/25/23 Rx topical cream dexamethasone 0.5 mg/5 mL oral mg PO 11/25/23 11/25/23 History solution Allergies Allergy/AdvReac Type Severity Reaction Status Date / Time oxycodone AdvReac Verified 11/25/23 07:43 Review of Systems Review of Systems ROS: Yes All systems reviewed with the patient and are negative except as otherwise documented Exam Vital Signs (past 8 hours): - 11/26/23 06:55 11/26/23 07:00 11/26/23 07:00 Temperature 98.4 F Pulse Rate 95 H 91 H Respiratory Rate 20 30 H Blood Pressure 99/56 L 98/60 Pulse Oximetry 96 95 Oxygen Delivery Method Nasal Cannula Nasal Cannula Oxygen Flow Rate 2 11/26/23 07:15 11/26/23 07:30 11/26/23 07:45 Temperature Pulse Rate 85 76 72 Respiratory Rate 34 H 23 34 H Blood Pressure Pulse Oximetry 96 96 100 Oxygen Delivery Method Nasal Cannula Oxygen Flow Rate 11/26/23 07:46 11/26/23 07:46 11/26/23 08:00 Temperature Pulse Rate 72 Respiratory Rate 26 H Blood Pressure 124/58 L 122/56 L Pulse Oximetry 100 Oxygen Delivery Method Nasal Cannula Oxygen Flow Rate 2 11/26/23 08:00 11/26/23 08:15 11/26/23 08:30 Temperature Pulse Rate 68 66 67 Respiratory Rate 30 H 29 H 32 H Blood Pressure Pulse Oximetry 99 100 99 Oxygen Delivery Method Nasal Cannula Nasal Cannula Oxygen Flow Rate 2 2 11/26/23 08:30 11/26/23 08:45 Temperature Pulse Rate 66 Respiratory Rate 34 H Blood Pressure 120/84 Pulse Oximetry 99 Oxygen Delivery Method Nasal Cannula Oxygen Flow Rate 2 Oxygen Delivery Method Nasal Cannula Oxygen Flow Rate 2 Narrative Exam Narrative: Elderly female in no obvious distress sitting up on a [facility] emergency department actively talking gets up to use the commode while I am there (and I leave the room) without any difficulty whatsoever HEENT-unremarkable Lungs-good breath sounds no wheezes no crackles Heart-regular rate and rhythm Abdomen-positive bowel tones soft nontender nondistended Extremities-no edema Objective Labs 11/26/23 06:30 11/26/23 06:30 Labs: Laboratory Results - last 24 hr 11/26/23 11/26/23 06:30 07:23 WBC 10.3 RBC 4.61 Hgb 13.7 Hct 40.5 MCV 87.9 MCH 29.7 MCHC 33.8 RDW 13.4 Plt Count 374 Neut % (Auto) 66.9 Lymph % (Auto) 22.6 L [place] % (Auto) 7.8 Eos % (Auto) 1.9 L Baso % (Auto) 0.8 Neut # (Auto) 6900 Lymph # (Auto) 2300 [place] # (Auto) 800 Eos # (Auto) 200 Baso # (Auto) 100 D-Dimer 790 H VBG pH 7.42 VBG pCO2 42.0 L VBG pO2 21 L VBG HCO3 27 VBG Total CO2 29 VBG O2 Saturation 36 L VBG Base Excess 3.0 FiO2 28 Sodium 137 Potassium 4.1 Chloride 100 Carbon Dioxide 28 BUN 25 H Creatinine 0.72 Estimated GFR > 60 BUN/Creatinine Ratio 34.7 H Glucose 121 H Lactate 0.7 Calcium 9.7 Total Bilirubin 0.9 AST 41 H ALT 28 Alkaline Phosphatase 75 Troponin I < 0.012 Total Protein 8.9 H Albumin 4.6 Globulin 4.3 H Albumin/Globulin Ratio 1.1 Lipase 186 Procalcitonin 0.06 Assessment & Plan Assessment & Plan narrative: 1. 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 Patient does not desire any further evaluation or treatment for her cancer. We discussed that radiation therapy would be a likely option, she has had this several times it has not interested. We discussed that there might be some chemotherapeutic/immunological option that would be beneficial might gain her a few weeks or maybe even months at some cost of side effects and quality of life related to the chemotherapy administration. She really is not interested at all, and would prefer to focus on maintaining her comfort for as long as she can. She has received immunological therapy before and seem to have side effects as she recalls. Hospice care seems entirely appropriate. I am not sure what kind of benefit she would get out of treatment at this stage in any event. 2. Hemoptysis-likely secondary to the metastatic disease rather than the small pulmonary emboli. No specific intervention appropriate at this time especially given patient's wishes. Fortunately with small amounts of oxygen she is able to maintain her oxygen saturation. Will continue monitor degree of hemoptysis, but given patient's wishes for more comfort care do not believe she had be a candidate for any specific intervention including probably even transfusion 3. Pulmonary emboli-maybe a contributing factor to her mild hypoxia but not a candidate for intervention at this time. I would suspect the pulmonary emboli are more a phenomenon related to the metastatic disease itself rather than some more peripheral (lower extremity DVT) type source. Certainly no anticoagulation and not large enough for an interventional approach which is also not desired by patient. Fortunately she has been relatively easy to oxygenate 4. Patient's other medical problems including her anxiety disorder hyperlipidemia insomnia etcetera will be treated only to focus on comfort. Antianxiety medications makes sense but a lipid lowering therapy does not make any sense at this stage Overall hospice referral will be initiated and will monitor patient here in the hospital for the next 24-36 hours with plans to likely discharge home with hospice
[2023-11-26 10:44] LABS: Appearance Urine UA CLEAR; Bilirubin Urine UA NEGATIVE (NEGATIVE); Color Urine UA YELLOW; Glucose Urine UA NEGATIVE (Negative); Ketones Urine UA TRACE (NEGATIVE); Leukocyte Esterase Urine UA NEGATIVE (NEGATIVE); Nitrite Urine UA NEGATIVE (Negative); Occult Blood Urine UA 1+ (Negative); Protein Urine UA NEGATIVE (Negative); Urobilinogen Urine UA 0.2 E.U./dL (0.2)
[2023-11-26 11:04] LABS: pH Urine UA 7.5 (4.5-8.0)
[2023-11-26 11:05] LABS: Bacteria Urine None Seen; Culture Indicated Urine Cult Not Indicated; RBC Urine 0-1/HPF (0-5/HPF); Squamous Epithelial Cell Urine None Seen (0-5/HPF); Urine Volume 10mL (spun); WBC Urine None Seen (0-5/HPF)
--- NOTE | 2023-11-26 16:25 | PC.NURSE ---
feel free to call Leti ([phone]), the patient's advocate if needed.
[2023-11-26] MEDS: ZOLPIDEM 5 MG TABLET 10 MG PO (20:52)
[2023-11-26] MEDS: LORazepam 2 MG/ML INJ 1 MG IV (20:52)
[2023-11-27 07:21] LABS: Add Manual Diff / Slide Review NO; Basophils Absolute Auto 100 /uL (0-100); Basophils Percent Auto 0.7 % (0-2); Eosinophils Absolute Auto 200 /uL (0-450); Eosinophils Percent Auto 2.3 % (2-4); Hematocrit 33.7 % (36-46); Hemoglobin 11.7 g/dL (12.0-16.0); Lymphocytes Absolute Auto 1200 /uL (1100-4500); Lymphocytes Percent Auto 13.7 % (25-40); Mean Corpuscular HGB Conc 34.5 % (30-36); Mean Corpuscular Hemoglobin 30.2 PG (26-34); Mean Corpuscular Volume 87.4 fL (80-100); Monocytes Absolute Auto 800 /uL (0-900); Monocytes Percent Auto 8.7 % (3-14); Neutrophils Absolute Auto 6700 /uL (1500-7000); Neutrophils Percent Auto 74.6 % (50-75); Platelet Count 285 X10^3/uL (150-400); Red Blood Cell Count 3.86 X10^6/uL (4.0-5.2); Red Cell Distribution Width 13.3 % (11.6-14.8)
[2023-11-27 07:30] VITALS: O2SAT 96
[2023-11-27 08:00] VITALS: BP 98/54; PULSE 76; RESP 20; TEMP 36.2; O2SAT 100
--- NOTE | 2023-11-27 08:05 | PM.PN.1 ---
Subjective Subjective Date Patient Seen: 11/27/23 Time Patient Seen: 08:05 Interval history: Patient is feeling fine this morning. Still coughing up some bloody sputum this morning like she does every morning but nothing new or different about that I turned off her oxygen and measured it after 10 minutes or so and her resting oxygen saturation on room air was 96% Blood count this morning is down not surprisingly, from 13 plus yesterday to 11.7 this morning. Exam Vital Signs (past 8 hours): Fraction of Inspired Oxygen 28 SaO2/FiO2 Ratio 346 Oxygen Delivery Method Nasal Cannula Oxygen Flow Rate 1 Objective Labs 11/27/23 07:10 11/26/23 06:30 Labs: Laboratory Results - last 24 hr 11/26/23 11/27/23 09:46 07:10 WBC 9.0 RBC 3.86 L Hgb 11.7 L Hct 33.7 L MCV 87.4 MCH 30.2 MCHC 34.5 RDW 13.3 Plt Count 285 Neut % (Auto) 74.6 Lymph % (Auto) 13.7 L [place] % (Auto) 8.7 Eos % (Auto) 2.3 Baso % (Auto) 0.7 Neut # (Auto) 6700 Lymph # (Auto) 1200 [place] # (Auto) 800 Eos # (Auto) 200 Baso # (Auto) 100 Urine Color Yellow Urine Appearance Clear Urine pH 7.5 Ur Specific [place] 1.010 Urine Protein Negative Urine Glucose (UA) Negative Urine Ketones Trace H Urine Occult Blood 1+ H Urine Nitrate Negative Urine Bilirubin Negative Urine Urobilinogen 0.2 Ur Leukocyte Esterase Negative Urine RBC 0-1/hpf D Urine WBC None seen Ur Squamous Epith Cells None seen Urine Bacteria None seen Ur Culture Indicated? 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 I reviewed her record in more detail when she presented with evidence of enlarging metastatic disease in her chest previously she was referred for consideration of additional radiation therapy but Radiation Oncology felt like she would maxed out her lifetime dose and was unwilling to radiate her even with evidence enlarging metastatic disease in the chest. This was in 2020. That point decision was made to follow her conservatively but obviously now she shows evidence of enlarging metastatic disease. She did receive immunological therapy with Keytruda, but had significant side effects including diarrhea etcetera. Overall therefore I think her decision to avoid treatment makes sense. I think at this point focusing on maximizing her quality of life during her remaining time and avoiding therapies that would diminish her quality of life such as surgical intervention or additional chemotherapy/immunological therapy etcetera is entirely appropriate and the focus of patient's visit today I think if her oxygen level is okay without oxygen which I suspect it will be, then she can likely be discharged home today. She has a son who lives in town who can stay with her this evening and daughter is coming tomorrow. We can have hospice see her in her home setting and get her signed up for hospice in that fashion. She will continue to have some degree of hemoptysis in his some point in might become much more massive but again if that is the mechanism of her end of life thin she is perfectly accepting of that possibility Overall she is likely to be ready for discharge later today given the above and will work on getting outpatient hospice set up for her Quality VTE Deep Vein Thrombosis/Pulmonary Embolism Present on Admission: No
[2023-11-27] MEDS: CITALOPRAM 10 MG TABLET 20 MG PO (09:22)
--- NOTE | 2023-11-27 10:14 | PM.DS.1 ---
History of Present Illness History of Present Illness Date Patient Seen: 11/27/23 Time Patient Seen: 10:14 Chief complaint: SOB comfort measures Narrative: 83-year-old female well known to me, last seen in October but since then apparently been having increasing shortness of breath and very recently has begun having hemoptysis. She describes the hemoptysis generally as first thing in the morning only and then she coughs some through the rest of the day with no blood. Has been seen by 1 of my colleagues in the primary care clinic and then the walk-in clinic for these issues. 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 In the ER she was easy to re oxygenate with oxygen, blood counts are stable etcetera. Hemodynamically she has been quite stable. Patient is quite adamant she desires no further treatment of any sort for cancer. She would prefer to explore hospice/palliative care at this stage. She would like absolutely no heroic interventions whatsoever, although apparently per ER physician is okay with BiPAP if that becomes necessary for respiratory distress. Really what she would like to focus on is going back home and maintaining comfort and not feeling short of breath like she has the last couple of days Discharge Providers Provider Date of admission: 11/26/23 09:27 Discharge Date: 11/27/23 Primary care physician: Dallas Mendoza MD Consults: 11/26/23 09:26 Consult to Hospice Referral Stat Comment: 11/26/23 11:05 Consult to Discharge Planning Routine Comment: Hospice Care Discharge provider: Dallas Mendoza MD Summary Hospital Course Discharge Diagnosis: 1. Hemoptysis secondary to metastatic squamous cell carcinoma of the tonsil 2. 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 Recurrent squamous cell carcinoma of the tonsil 4. Acute blood loss anemia 5. Generalized anxiety disorder 6. Insomnia Hospital Course: Patient was evaluated in the ER as above. Found to have evidence of progression of her metastatic disease in her lungs as well as growth of the original tumor site at the base of her tongue/tonsil area. Discussions were held with the patient over time and after reviewing her prior evaluation and treatment course it was determined she had not likely be a candidate for any radiation therapy given the previous decision to not treat what was clearly advancing metastatic disease in her lungs in 2020. She also was not agreeable to having any sort of surgical intervention and had significant issues with the immunological therapy she had had previously. Therefore she was very strongly advocating for no additional treatment but merely perhaps hospice care to help her manage her remaining time in her home setting She did continue to have small volume hemoptysis first thing in the morning but none through the course of the day. Blood count did drop off some when rechecked morning of discharge. Patient was hypoxic upon presentation to the emergency department apparently but this rapidly resolved and she was not at all hypoxic even with activity on day of discharge Therefore was felt most appropriate to discharge patient home. Consultation to hospice has been initiated with referral which will occur as an outpatient Patient will have family to be a with her in the home setting for the next several weeks I will see the patient as an out patient in the clinic as previously scheduled Exam Vital Signs (past 8 hours): - 11/27/23 08:00 Temperature 97.2 F L Pulse Rate 76 Respiratory Rate 20 Blood Pressure 98/54 L Pulse Oximetry 100 Oxygen Flow Rate 0 Fraction of Inspired Oxygen 28 SaO2/FiO2 Ratio 346 Oxygen Delivery Method Nasal Cannula Oxygen Flow Rate 0 Objective Labs 11/27/23 07:10 11/26/23 06:30 Labs: Laboratory Results - last 24 hr 11/26/23 11/27/23 09:46 07:10 WBC 9.0 RBC 3.86 L Hgb 11.7 L Hct 33.7 L MCV 87.4 MCH 30.2 MCHC 34.5 RDW 13.3 Plt Count 285 Neut % (Auto) 74.6 Lymph % (Auto) 13.7 L [place] % (Auto) 8.7 Eos % (Auto) 2.3 Baso % (Auto) 0.7 Neut # (Auto) 6700 Lymph # (Auto) 1200 [place] # (Auto) 800 Eos # (Auto) 200 Baso # (Auto) 100 Urine Color Yellow Urine Appearance Clear Urine pH 7.5 Ur Specific [place] 1.010 Urine Protein Negative Urine Glucose (UA) Negative Urine Ketones Trace H Urine Occult Blood 1+ H Urine Nitrate Negative Urine Bilirubin Negative Urine Urobilinogen 0.2 Ur Leukocyte Esterase Negative Urine RBC 0-1/hpf D Urine WBC None seen Ur Squamous Epith Cells None seen Urine Bacteria None seen Ur Culture Indicated? 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 leisure activities: art, reading and other Smoking Status: Former smoker Tobacco: How many years used: 20 Smokeless tobacco user: other quit status: quit date established second hand exposure: Yes (Childhood.) alcohol intake: current substance use type: does not use Discharge Assessment & Plan Assessment and Plan Plan of Treatment: Patient to be discharged home with hospice to be arranged [facility] Discharge Plan Discharge Plan Patient Disposition: Home Discharge orders & Medications Prescriptions: Continued dexamethasone 0.5 mg/5 mL solution 0.5 mg PO DAILY glucosamine sulfate [Glucosamine] 500 mg tablet 500 mg PO BID cinnamon bark [Cinnamon] 500 mg capsule 1,000 mg PO DAILY multivitamin Tablet 1 tab PO DAILY omega 0-wzn-cpd-fish oil [Fish Oil] 1,000 mg (120 mg-180 mg) capsule 1 cap PO DAILY simvastatin 40 mg tablet 20 mg PO BEDTIME alprazolam 0.25 mg tablet 0.25 mg PO Q48H Rx Instructions: take every other night, alternating with zolpidem citalopram [Celexa] 20 mg tablet 20 mg PO DAILY zolpidem 10 mg tablet 5 mg PO Q48H Rx Instructions: take every other night, alternating with alprazolam Follow up/Referrals: Dallas Mendoza MD [Primary Care Provider] - 2 Weeks Visit Report/Discharge Packet Instructions: DI for Constipation, How to Measure Oxygen Saturation via Pulse Oximetry, How to Prevent Falls, DI for Hemoptysis, DI for Oropharyngeal Cancer Stand Alone Forms: Patient Portal/API, Stroke Signs & Symptoms Discharge Data Primary Care Provider: Dallas Mendoza Attending Provider: Dallas Mendoza Admit Date/Time: 11/26/23 09:27 Quality VTE Deep Vein Thrombosis/Pulmonary Embolism Present on Admission: No
--- NOTE | 2023-11-27 11:32 | PC.NURSE ---
Discharge: Pt feels ready to d/c to home. SS has arranged hospice referal. O2 sat on 2L was 98%, RA was 96%, amb w/out O2 and sat at the lowest was 93%. called and made aware. Also the pt's blood work is back. Unremarkable. MD Mendoza then wrote d/c orders to home. Reviewed d/c packet and questions answered. Pt had a friend give her a ride home. Pt voiced no concerns at time of discharge. Pt d/c to home via auto w/friend.
--- NOTE | 2023-11-27 11:46 | CM.DANOTE ---
Initial DCP Assessment Note Pt is an 83 yo female, resident of [place], arrives with concern for blood in her sputum; PMH includes tonsil cancer with lung metastases. Dr Mendoza discussed goals of care with patient and patient does not want any radiation, chemo or aggressive measures. Patient is appropriate for Hospice referral. PCP: Dallas Mendoza Payer: MCR/AARP Reviewed chart, met w/patient and her friend Jeramy, introduced self and role. Patient appears anxious and is eager to return home. Patient is indp in all aspects and reports a very supportive group of friends in [place]. Reviewed discharge plan; patient would like referral to [facility]. Patient reports daughter Shawna will be flying from [place] and able to stay at least a week. [facility], kindly agreed to send this referral. Discussed with Rachael at [facility]; patient requests info visit via her land line once home today. Plan: Discharge home w/friends and family to assist as needed, friend to transport, [facility] referral PRATIK Rose Discharge Planning/Care Management CM Discharge Assessment Start: 11/27/23 11:39 Freq: Status: Active Protocol: Document 11/27/23 11:39 DINO (Rec: 11/27/23 11:46 DINO [id number]) Discharge Planning Assessment Assigned Alum Mixer PRATIK Lang DPOA/Assigned Designee Name Shawna Gonzalez, daughter ( [place]) Contact Information [phone] Advance Directives? Yes: POLST Advance Directives on File Yes History Provided By Patient,Medical Record Prior Living Arrangements House Household Members none Type of transportation used prior to Drives own vehicle admit Independent with ADL's Yes Is patient alert and oriented? Yes Barriers to Discharge No Comment Home w/supportive friends and family Discharge Plan Home Transportation Arrangement Friend Referrals Initiated Other Additional Comment [facility]
== END 2023-11-27 10:50 | disposition hospice, home (50) | DRG 146 ==
LOC: ED 08:33 → AC 12:33
PROVIDERS: Emergency Medicine; Admitting Provider Internal Medicine; Emergency Provider Emergency Medicine; PCP Internal Medicine; Referring Provider Emergency Medicine; Visit Provider Internal Medicine
DX: C09.9 Malignant neoplasm of tonsil, unspecified (principal); I26.99 Other pulmonary embolism without acute cor pulmonale; C78.01 Secondary malignant neoplasm of right lung; D62 Acute posthemorrhagic anemia; F41.9 Anxiety disorder, unspecified; E78.5 Hyperlipidemia, unspecified; G47.00 Insomnia, unspecified; Z87.891 Personal history of nicotine dependence; Z66 Do not resuscitate; Z51.5 Encounter for palliative care
CPT/HCPCS: 36415; 70491; 71045; 71260; 74177; 80053; 81001; 82805; 83605; 83690; 84145; 84484; 85025; 85379; 87040; 87070; 87205; 93005; 93010; 94760; 99223; 99238; 99284; 99285; G0378; J2060; Q9967